=== PATIENT | male | born 1995 | race Hispanic/Latino ===

== ENCOUNTER 2021-05-14 23:37 | Emergency (ER) | payer BC, OTHER ==
[2021-05-15 00:50] LABS: Absolute Lymphocytes (CBC) 2.9 K/uL (0.7-4.9); Basophils % 0.7 % (0-1.3); Lymphocytes % 26.2 % (15.3-44.8); MPV 7.9 fL (7.6-11.3); RBC Red Blood Cell Count 4.66 M/uL (4.33-5.43)
[2021-05-15 01:05] LABS: ALT/SGPT 159 U/L (12-78); AST/SGOT 74 U/L (15-37); Albumin 3.5 g/dL (3.4-5.0); Alkaline Phosphatase 110 U/L (45-117); BUN Blood Urea Nitrogen 11 mg/dL (7-18); Bicarbonate 29 mmol/L (21-32); Bilirubin Direct 0.2 mg/dL (0-0.2); Bilirubin Total 0.6 mg/dL (0.2-1.0); Glucose Level 117 mg/dL (74-106); NT PRO-BNP 11 pg/mL (<125); Potassium 3.3 mmol/L (3.5-5.1); Sodium Level 142 mmol/L (136-145); Troponin (Emerg Dept Use Only) < 0.02 ng/mL (0.0-0.045)
[2021-05-15] MEDS ORDERED: KETOROLAC 30 MG/ML INJ ONE (01:44)
[2021-05-15] MEDS ORDERED: NA CHLORIDE 0.9% 1,000 ML ONE (01:44)
[2021-05-15] MEDS ORDERED: POTASSIUM 25 MEQ EFFERV TAB ONE (03:08)
[2021-05-15 03:17] LABS: Urine Blood Negative (Negative); Urine Glucose Negative (Negative); Urine Protein Negative (Negative); Urine Specific Gravity >=1.030 (1.005-1.030); Urine pH 6.5 (5.0-7.0)
--- NOTE | 2021-05-15 03:24 | ER ---
Nurse's Notes [facility] Name: Meño Rae Age: 25 yrs Sex: Male : 1995 Arrival Date: 05/14/2021 Time: 23:38 Bed 9 Private MD: Diagnosis: Chest pain, unspecified Presentation: 05/15 00:30 Chief complaint: Patient states: he started having chest pain and shortness of breath bb tonight while watching TV. Coronavirus screen: At this time, the client does not indicate any symptoms associated with coronavirus-19. Ebola Screen: No symptoms or risks identified at this time. Initial Sepsis Screen: Does the patient meet any 2 criteria? No. Patient's initial sepsis screen is negative. Does the patient have a suspected source of infection? No. Patient's initial sepsis screen is negative. Risk Assessment: Do you want to hurt yourself or someone else? Patient reports no desire to harm self or others. Onset of symptoms was May 14, 2021. 00:30 Method Of Arrival: Ambulatory bb 00:30 Acuity: DANIEL 3 bb Triage Assessment: 00:30 General: Appears in no apparent distress. Behavior is calm, cooperative. Pain: bb Complains of pain in chest Pain currently is 4 out of 10 on a pain scale. Neuro: Level of Consciousness is awake, alert, obeys commands, Oriented to person, place, time, situation. Cardiovascular: Capillary refill < 3 seconds Patient's skin is warm and dry. Respiratory: Respiratory effort is even, unlabored, Respiratory pattern is regular. GI: No signs and/or symptoms were reported involving the gastrointestinal system. Derm: Skin is dry, Skin is normal, Skin temperature is warm. Musculoskeletal: Circulation, motion, and sensation intact. Historical: - Allergies: 00:30 No Known Allergies; bb - Home Meds: 00:30 None [Active]; bb - PMHx: 00:30 None; bb - Immunization history:: Adult Immunizations up to date, Client reports having NOT received the Covid vaccine. - Social history:: Smoking status: Patient denies any tobacco usage or history of. Screenin:51 Abuse screen: Denies threats or abuse. Nutritional screening: No deficits noted. bb Tuberculosis screening: No symptoms or risk factors identified. Fall Risk None identified. Assessment: 00:51 Reassessment: No changes from previously documented assessment. Patient is alert, bb oriented x 3, equal unlabored respirations, skin warm/dry/pink. see triage assessment. 00:52 Pain: Pain does not radiate. Pain began approx 1900 last night. bb 02:56 Reassessment: Patient is alert, oriented x 3, equal unlabored respirations, skin bb warm/dry/pink. Patient states feeling better. Patient states symptoms have improved. 04:32 Reassessment: Patient is alert, oriented x 3, equal unlabored respirations, skin bb warm/dry/pink. pt verbalized understanding of and agrees to plan of care discharge instructions given pt ambulated with steady gait to exit. Vital Signs: 05/14 23:50 BP 130 / 69; Pulse 74; Resp 18; Temp 99.2(O); Pulse Ox 99% ; Weight 115.67 kg (R); mw2 Height 5 ft. 5 in. (165.10 cm); Pain 8/10; 05/15 02:30 BP 111 / 55; Pulse 81; Resp 16 S; Pulse Ox 100% on R/A; Pain 2/10; bb 04:32 BP 112 / 74; Pulse 64; Resp 16 S; Pulse Ox 99% on R/A; bb 05/14 23:50 Body Mass Index 42.43 (115.67 kg, 165.10 cm) mw2 ED Course: 05/14 23:38 Patient arrived in ED. wm 05/15 00:25 Missed attempt(s): 20 gauge in left antecubital area. Bleeding controlled, band aid mw2 applied, catheter tip intact. 00:30 Triage completed. bb 00:30 Initial lab(s) drawn, by me, sent to lab. Inserted saline lock: 20 gauge in right hand, bb using aseptic technique. Blood collected. Patient maintains SpO2 saturation greater than 95% on room air. 00:30 Arm band placed on Patient placed in an internal wait recliner. bb 00:49 Naren Macedo PA is PHCP. cp 00:49 Marcelino Truong MD is Attending Physician. cp 00:51 Patient has correct armband on for positive identification. teamcenter consultant on. Pulse bb ox on. NIBP on. 01:19 Alexia Leahy, ALISON is Primary Nurse. bb 01:35 US Extremity Venous Unilateral Ltd In Process Unspecified. EDMS 03:34 XRAY Chest (1 view) In Process Unspecified. EDMS 04:32 No provider procedures requiring assistance completed. IV discontinued, intact, bb bleeding controlled, No redness/swelling at site. Pressure dressing applied. Administered Medications: 01:21 Drug: Ketorolac 15 mg Route: IVP; Site: right hand; bb 02:30 Follow up: Response: No adverse reaction; Pain is decreased bb 01:21 Drug: NS 0.9% 1000 ml Route: IV; Rate: 1000 ml; Site: right hand; bb 02:30 Follow up: IV Status: Completed infusion; IV Intake: 1000ml bb 02:43 Drug: Potassium Effervescent Tablet 50 mEq Route: PO; bb 04:34 Follow up: Response: No adverse reaction bb Intake: 02:30 IV: 1000ml; Total: 1000ml. bb Outcome: 03:24 Discharge ordered by MD. cp 04:32 Discharged to home ambulatory. bb 04:32 Condition: stable 04:32 Discharge instructions given to patient, Instructed on discharge instructions, follow up and referral plans. medication usage, Demonstrated understanding of instructions, follow-up care, medications, Prescriptions given X 1. 04:34 Patient left the ED. bb Signatures: Dispatcher [employer] EDMS Alexia Leahy RN RN bb Naren Macedo PA PA cp [place], My[employer]ena 2 Monet Frye
--- NOTE | 2021-05-15 03:24 | EDPHYS ---
Physician Documentation [facility] Name: Meño Rae Age: 25 yrs Sex: Male : 1995 Arrival Date: 05/14/2021 Time: 23:38 Bed 9 Private MD: ED Physician Marcelino Truong HPI: 05/15 00:55 This 25 yrs old Male presents to ER via Ambulatory with complaints of Chest cp Pain, Numbness Of Arm - LEFT. 00:55 The patient or guardian reports chest pain that is located primarily in the anterior cp chest wall, left. 00:55 The pain radiates to left back. Associated signs and symptoms: Pertinent positives: cp lower extremity pain, tingling of left arm, Pertinent negatives: abdominal pain, diaphoresis, lower extremity swelling, recent travel, syncope, vomiting. The chest pain is described as sharp. Duration: The patient or guardian reports a single episode, that is still ongoing, and unchanged. Modifying factors: The symptoms are alleviated by nothing. the symptoms are aggravated by nothing. 00:55 Patient reports left side chest pain started last night while sitting and watching TV. cp Historical: - Allergies: 00:30 No Known Allergies; bb - Home Meds: 00:30 None [Active]; bb - PMHx: 00:30 None; bb - Immunization history:: Adult Immunizations up to date, Client reports having NOT received the Covid vaccine. - Social history:: Smoking status: Patient denies any tobacco usage or history of. ROS: 01:00 Constitutional: Negative for body aches, chills, fever, poor PO intake. cp 01:00 Cardiovascular: Positive for chest pain, Negative for edema, palpitations. cp 01:00 Respiratory: Negative for cough, shortness of breath, wheezing. 01:00 Abdomen/GI: Negative for abdominal pain, nausea, vomiting, and diarrhea. 01:00 Back: Negative for pain at rest, pain with movement, radiated pain. 01:00 MS/extremity: Positive for pain, tenderness, of the left lower leg. 01:00 Neuro: Positive for tingling, of the left arm, Negative for altered mental status, headache, syncope, weakness. 01:00 All other systems are negative. cp Exam: 00:00 ECG was reviewed by the Attending Physician. cp 01:05 Constitutional: The patient appears in no acute distress, alert, awake, cp non-diaphoretic, non-toxic, well developed, well nourished, obese. 01:05 Head/Face: Normocephalic, atraumatic. cp 01:05 Eyes: Periorbital structures: appear normal, Conjunctiva: normal, no exudate, no injection, Sclera: no appreciated abnormality, Lids and lashes: appear normal, bilaterally. 01:05 ENT: External ear(s): are unremarkable, Nose: is normal, Mouth: Lips: moist, Oral mucosa: moist, Posterior pharynx: Airway: no evidence of obstruction, patent. 01:05 Neck: ROM/movement: is normal, is supple, without pain, no range of motions limitations. 01:05 Chest/axilla: Inspection: normal, Palpation: is normal, no crepitus, no tenderness. 01:05 Cardiovascular: Rate: normal, Rhythm: regular, Pulses: Pulses are 2+ in right radial artery and left radial artery. Heart sounds: murmur, not appreciated, Edema: is not appreciated. 01:05 Respiratory: the patient does not display signs of respiratory distress, Respirations: normal, no use of accessory muscles, no retractions, labored breathing, is not present, Breath sounds: are clear throughout, no decreased breath sounds, no stridor, no wheezing. 01:05 Abdomen/GI: Inspection: abdomen appears normal, Palpation: abdomen is soft and non-tender, in all quadrants. 01:05 Back: pain, is absent, ROM is normal. 01:05 Musculoskeletal/extremity: DVT Exam: pain, that is mild, of the left leg, of the left calf, tenderness, that is mild, of the left leg, of the posterior aspect left lower leg, positive Homans' sign noted on exam. 01:05 Neuro: Orientation: to person, place \T\ time. Mentation: is normal, Motor: moves all fours, strength is normal, Sensation: tingling, that is mild, of the left arm. Vital Signs: 05/14 23:50 BP 130 / 69; Pulse 74; Resp 18; Temp 99.2(O); Pulse Ox 99% ; Weight 115.67 kg (R); mw2 Height 5 ft. 5 in. (165.10 cm); Pain 8/10; 05/15 02:30 BP 111 / 55; Pulse 81; Resp 16 S; Pulse Ox 100% on R/A; Pain 2/10; bb 04:32 BP 112 / 74; Pulse 64; Resp 16 S; Pulse Ox 99% on R/A; bb 05/14 23:50 Body Mass Index 42.43 (115.67 kg, 165.10 cm) mw2 MDM: 00:53 Patient medically screened. 01:00 Differential diagnosis: acute myocardial infarction, acute pericarditis, cholecystitis, cp Cholelithiasis pericarditis, pleurisy, pneumonia, pneumothorax, pulmonary embolus. 03:22 Data reviewed: vital signs, nurses notes, lab test result(s), EKG, radiologic studies, cp plain films. Test interpretation: by ED physician or midlevel provider: ECG, chest xray negative for infiltrates. Response to treatment: the patient's symptoms have markedly improved after treatment, VSS. Patient reports pain markedly improved, and as a result, I will discharge patient. 03:23 Special discussion: Based on the patient's history, exam, and Dx evaluation, there is cp no indication for emergent intervention or inpatient Tx. It is understood by the patient/guardian that if the Sx's persist or worsen they need to return immediately for re-evaluation. 05/15 00:09 Order name: Basic Metabolic Panel; Complete Time: 01:30 mw2 05/15 01:30 Interpretation: Normal except: K 3.3; CL 109; GLUC 117. 05/15 00:09 Order name: CBC with Diff; Complete Time: 00:55 mw2 05/15 00:55 Interpretation: Normal except: WBC 11.10; HCT 39.0. 05/15 00:09 Order name: LFT's; Complete Time: 01:30 mw2 05/15 00:09 Order name: Magnesium; Complete Time: :30 mw2 05/15 00:09 Order name: NT PRO-BNP; Complete Time: :30 mw2 05/15 00:09 Order name: PT-INR; Complete Time: 02:07 mw2 05/15 00:09 Order name: Troponin (emerg Dept Use Only); Complete Time: 01:30 mw2 05/15 00:09 Order name: XRAY Chest (1 view) mw2 05/15 00:55 Order name: US Extremity Venous Unilateral Ltd cp 05/15 00:55 Order name: UDS cp 05/15 01:25 Order name: D-Dimer; Complete Time: 02:07 EDNH 05/15 02:07 Interpretation: Reviewed. cp 05/15 03:17 Order name: Urine Dipstick-Ancillary [facility] 05/14 23:51 Order name: EKG - Nurse/Tech; Complete Time: 23:51 mw2 05/14 23:51 Order name: EKG; Complete Time: 23:52 mw2 05/15 00:09 Order name: Cardiac monitoring [facility] 05/15 00:09 Order name: IV Saline Lock; Complete Time: 00:28 mw2 05/15 00:09 Order name: Labs collected and sent; Complete Time: : mw2 EC:00 Rate is 69 beats/min. Rhythm is regular. LA interval is normal. QRS interval is normal. cp QT interval is normal. T waves are Inverted in leads III, aVR. Interpreted by me. Reviewed by me. Administered Medications: 01:21 Drug: Ketorolac 15 mg Route: IVP; Site: right hand; bb 02:30 Follow up: Response: No adverse reaction; Pain is decreased bb 01:21 Drug: NS 0.9% 1000 ml Route: IV; Rate: 1000 ml; Site: right hand; bb 02:30 Follow up: IV Status: Completed infusion; IV Intake: 1000ml bb 02:43 Drug: Potassium Effervescent Tablet 50 mEq Route: PO; bb 04:34 Follow up: Response: No adverse reaction bb Disposition: 03:30 Chart complete. cp 07:17 Co-signature as Attending Physician, Marcelino Truong MD. [email or web address] Disposition Summary: 05/15/21 03:24 Discharge Ordered Location: Home cp Problem: new cp Symptoms: have improved cp Condition: Stable cp Diagnosis - Chest pain, unspecified cp Followup: cp - With: Private Physician - When: 2 - 3 days - Reason: Recheck today's complaints Discharge Instructions: - Discharge Summary Sheet cp - Nonspecific Chest Pain, Adult cp Forms: - Medication Reconciliation Form cp - Thank You Letter cp - Antibiotic Education cp - Prescription Opioid Use cp Prescriptions: - Diclofenac Sodium 75 mg Oral Tablet Sustained Release - take 1 tablet by ORAL route 2 times per day; 30 tablet; Refills: 0, Product cp Selection Permitted Signatures: Dispatcher [facility] Alexia Leahy, RN RN bb Naren Macedo PA PA cp Natacha Cole mw2 Marcelino Truong MD MD mh7 Corrections: (The following items were deleted from the chart) 01:24 00:55 D-DIMER+[id number] ordered. EDNH EDNH 18:13 03:33 Special discussion: Based on the patient's history, exam, and Dx evaluation, cp there is no indication for emergent intervention or inpatient Tx. It is understood by the patient/guardian that if the Sx's persist or worsen they need to return immediately for re-evaluation. cp
[2021-05-15 03:47] LABS: Barbiturates NEGATIVE (NEGATIVE); Benzodiazepines NEGATIVE (NEGATIVE); Cocaine NEGATIVE (NEGATIVE); METHAMPHETAM NEGATIVE (NEGATIVE); Methadone NEGATIVE (NEGATIVE); Opiates NEGATIVE (NEGATIVE); Phencyclidine NEGATIVE (NEGATIVE); THC Cannibis NEGATIVE (NEGATIVE)
[2021-05-15 04:41] VITALS: TEMP 99.2
[2021-05-15 04:44] VITALS: BP 112/74; O2SAT 99
[2021-05-15] MEDS ORDERED: PANTOPRAZOLE 40 MG INJ ONE (05:23)
--- NOTE | 2021-05-15 07:16 | RAD REPORT ---
EXAM DESCRIPTION: RAD - Chest Single View - 05/15/2021 3:35 am CLINICAL HISTORY: CHEST PAIN COMPARISON: No comparisons FINDINGS: Underpenetration limits evaluation of the peripheral aspect of the left lung but no defini te process identified The heart size is within normal limits.No acute osseous abnormality. No signifi cant pleural effusions or pneumothorax. IMPRESSION: No acute cardiopulmonary disease.
--- NOTE | 2021-05-15 07:17 | RAD REPORT ---
EXAM DESCRIPTION: US - Extremity Venous Uni Ltd - 05/15/2021 1:35 am CLINICAL HISTORY: Left leg pain COMPARISON: None. TECHNIQUE: Real-time sonographic evaluation of the left lower extremity deep venous system was perfo rmed. FINDINGS: Normal compressibility, flow augmentation, phasic flow and spontaneous flow is identified in the left lower extremity deep venous system. No intraluminal filling defects seen. IMPRESSION: No DVT in the left lower extremity.
== END 2021-05-15 04:34 | disposition home or self-care (01) ==
LOC: ER 23:37
DX: R07.89 Other chest pain (principal)
CPT/HCPCS: 93005 ×2; 85025; 80048; 36415; 83735; 85610; 85379; 80076; 81003; 84484; 83880; 80307; 71045; 93971; C9113; J7030; 96361; 96374; 99285

== ENCOUNTER 2023-03-19 13:08 | Emergency (ER) | payer BC ==
--- OUTSIDE RECORDS SUMMARY | 2023-03-19 13:12 | XMS REPORT | Continuity of Care Document ---
:1995 Author Organization [facility] t Address [address] [place] [address] [place] [id number] Care Team Providers Name Role Phone Dulce Jameson Attending Clinician Unavailable Jesse Neal Attending Clinician Problems Condition Condition Condition Status Onset Resolution Last Treating Co mments Source Name Details Category Date Date Treatment Clinician Date RT HAND RT HAND Diagnosis Active 2018-07-11 Memoria Active 06-15 07:40:00 l 06/15/2018 08:00: Twin noyola [address] HAND THRU HAND THRU Diagnosis Active 2018-06-15 Memoria GLASS GLASS 06-15 12:01:00 l WINDOW/MAXIMO WINDOW/MAXIMO 00:00: Roberto haro RNIQUET RNIQUET 00 Active 06/15/2018 [facility] FOREARM FOREARM Diagnosis Active 2018-06-16 Memoria LAC,S/P LAC,S/P 06-15 08:59:00 l PUT ARM PUT ARM 00:00: Francisco THRU THRU 00 WINDOW WINDOW Active 06/15/2018 [facility] Laceration Problem 2019-02-26 M emoria of flexor Laceration 11:37:16 l muscle, of flexor Twin n fascia and muscle, tendon of fascia and right ring tendon of finger at right ring forearm finger at level, forearm subsequent level, encounter subsequent encounter 02/26/2019 [facility] Unspecifie Unspecifi Problem 2019-02-26 Memoria d injury ed injury 11:37:16 l of flexor of flexor Herm mary muscle, muscle, fascia and fascia and tendon of tendon of left left little little finger at finger at forearm forearm level, level, subsequent subsequent encounter encounter 02/26/2019 [facility] Pain in Pain in Problem 2019-02-26 Me moria joints of joints of 11:37:16 l right hand right hand He rmann 9 [facility] Localized Localized Problem 2019-02-26 Memoria swelling, swelling, 11:37:16 l mass and mass and Twin n lump, lump, right right upper limb upper limb 02/26/2019 [facility] Other Other Problem 2019-02-26 Memor ia disturbanc disturbanc 11:37:16 l es of skin es of skin He rmann sensation sensation 02/26/2019 [facility] Stiffness Stiffness Problem 2019-02-26 Memoria of right of right 11:37:16 l hand, not hand, not Herm mary elsewhere elsewhere classified classified 9 [facility] Injury of Injury of Problem 2019-01-03 Memoria median median 13:18:05 l nerve at nerve at Twin n forearm forearm level, level, right arm, right arm, initial initial encounter encounter 01/03/2019 [facility] Injury of Injury of Problem 2019-01-03 Memoria ulnar ulnar 13:18:05 l nerve at nerve at Twin n forearm forearm level, level, right arm, right arm, initial initial encounter encounter 01/03/2019 [facility] Laceration Laceratio Problem 2019-01-03 Memoria of radial n of 13:18:05 l artery at radial Francisco forearm artery at level, forearm right arm, level, initial right arm, encounter initial encounter 01/03/2019 [facility] Laceration Laceratio Problem 2019-01-03 Memoria of ulnar n of ulnar 13:18:05 l artery at artery at Herm mary forearm forearm level, level, right arm, right arm, initial initial encounter encounter 01/03/2019 [facility] Contact Contact Problem 2019-01-03 Me moria with sharp with sharp 13:18:05 l glass, glass, Francisco initial initial encounter encounter 01/03/2019 [facility] Nicotine Nicotine Problem 2019-01-03 Memoria dependence dependence 13:18:05 l , , Francisco unspecifie unspecifie d, d, uncomplica uncomplica federico federico 01/03/2019 [facility] LACERATION LACERATIO Diagnosis Active 2018-06-16 Memoria WITHOUT N WITHOUT 08:59:00 l FOREIGN FOREIGN [place] BODY OF BODY OF UNSP UNSP Active [facility] Lesion of Lesion Problem 2019-02-26 Memoria ulnar of ulnar 11:37:16 l nerve, nerve, [place] right right upper limb upper limb 02/26/2019 [facility] History of Past Illness Condition Condition Condition Status Onset Resolution Last Treating Co mments Source Name Details Category Date Date Treatment Clinician Date Other Other Problem 2017-092019-02-26 2019-02-26 M emoria lesions of lesions of -16 11:37:16 11:37:16 l median median 06:39: [place] nerve, nerve, 07 right right upper limb upper limb 8 02/26/2019 [facility] Laceration Problem 2017-092019-01-03 2019-01-03 Memoria of other Laceration 10-29 13:18:05 13:18:05 l flexor of other 05:33: Francisco muscle, flexor 03 fascia and muscle, tendon at fascia and forearm tendon at level, forearm right arm, level, initial right arm, encounter initial encounter 08/29/2018 9 [facility] Allergies, Adverse Reactions, Alerts Allergy Allergy Status Severity Reaction(s) Onset Inactive Treating Comm ents Source Name Type Date Date Clinician No Known No Known Active Memori a Medicati Medicati l on on Francisco Talley Allerggilbert s s Social History Smoking Status Start Date Stop Date Source Social History [facility] Medications Ordered Filled Start Stop Current Ordering Indication Dosage Frequency Signature Comments Components Source Medication Medication Date Date Medication? Clinician (SIG) Name Name Sulfamethox No 1 tab, PO, Memoria azole 800 -17 Q12H, X 5 l MG / 11:43: day, # 10 Francisco Trimethopri 00 tab, 0 m 160 MG Refill(s) Oral Tablet [Bactrim] tramadol No 100 mg = 2 Mem oria hydrochlori 9-17 tab, PO, l de 50 MG 11:43: Q6H, PRN Alexandria nn Oral Tablet 00 Pain Score 1-5, X 7 day, # 60 tab, 0 Refill(s) Aspirin 325 Yes 325 mg = 1 Memoria MG Oral 9-17 tab, PO, l Tablet 11:43: BID, # 84 Twin n 00 tab, 0 Refill(s) normal 2018-0 No 500 mL, Memoria saline 0.9% 06-16 Rate: 500 l IV 500 mL 02:01: ml/hr, Twin n 00 Infuse over: 1 hr, Route: IV, Dosing Weight 100 kg, Total Volume: 500, Start date: 06/15/18 21:01:00 CDT, Duration: 1 doses or times, Stop date: 06/15/18 22:00:00 CDT, 2.17, m2 normal No 1,000 mL, Memori a saline 0.9% 06-16 Rate: 100 l IV 1,000 mL 02:01: ml/hr, Herm mary 00 Infuse over: 10 hr, Route: IV, Dosing Weight 100 kg, Total Volume: 1,000, Start date: 06/15/18 21:01:00 CDT, Duration: 30 day, Stop date: 07/15/18 21:00:00 CDT, 2.17, m2 Ancef No Notes: Memoria 06-15 (Same as l 21:00: Ancef) Tylenol No Notes: Max Salvador orlando 06-15 acetaminop l 17:00: hen 4000 [place] 00 mg/day (4 gm/day). (Same as: Tylenol Extra Strength) Tramadol No Notes: Not Mem oria 06-15 to exceed l 17:00: 400mg/day. (Same As: Ultram) ondansetron No Route: IV, Memoria (ANES) 06-15 Drug form: l 16:59: INJ, ONCE, Stop date: 06/15/18 11:59:00 CDT ketOROLAC No IV, ONCE Salvador orlando (ANES) 06-15 l 16:59: glycopyrrol No Route: IV, Memoria ate (ANES) 06-15 Drug form: l 16:59: INJ, ONCE, Stop date: 06/15/18 11:59:00 CDT neostigmine No Route: IV, Memoria (ANES) 06-15 Drug form: l 16:59: INJ, ONCE, Stop date: 06/15/18 11:59:00 CDT Aspirin 325 No Notes: Salvador orlando MG Oral 06-15 Take with l Tablet 16:46: food. Oxycodone No Notes: Memori a Hydrochlori 06-15 (Same as: l de 5 MG 16:46: Roxicodone Herm mary Oral Tablet ) Dilaudid No Notes: Memoria 06-15 Same as l 16:46: Dilaudid Benadryl No Notes: Memoria 06-15 (Same as: l 16:46: Benadryl) Hydromorpho No Notes: Salvador orlando ne 06-15 Same as l 16:32: Dilaudid dexamethaso No Route: IV, Memoria ne (ANES) 06-15 Drug form: l 15:30: INJ, ONCE, Stop date: 06/15/18 10:30:00 CDT midazolam No Route: IV, Me moria (ANES) 06-15 Drug form: l 15:15: SOLN, ONCE, Stop date: 06/15/18 10:15:00 CDT propofol 0 No Route: IV, Mem oria (ANES) 06-15 Drug form: l 15:15: INJ, ONCE, Stop date: 06/15/18 10:15:00 CDT famotidine No Route: IV, M emoria (ANES) 06-15 Drug form: l 15:15: INJ, ONCE, Stop date: 06/15/18 10:15:00 CDT fentaNYL No Route: IV, Mem oria (ANES) 06-15 Drug form: l 15:15: INJ, ONCE, Stop date: 06/15/18 10:15:00 CDT rocuronium No Route: IV, M emoria (ANES) 06-15 Drug form: l 15:15: INJ, ONCE, Stop date: 06/15/18 10:15:00 CDT lidocaine 0 No Route: IV, Me moria (ANES) 06-15 Drug form: l 15:15: INJ, ONCE, Stop date: 06/15/18 10:15:00 CDT phenylephri No Route: IV, Memoria ne (ANES) 06-15 Drug form: l 15:05: INJ, ONCE, Stop date: 06/15/18 10:05:00 CDT ceFAZolin No Route: IV, Me moria (ANES) 06-15 Drug form: l 15:00: INJ, ONCE, [place] 00 Stop date: 06/15/18 10:00:00 CDT acetaminoph No Route: IV, Memoria en (ANES) 06-15 Drug form: l 10 mg 14:55: INJ, Start Twin n date: 06/15/18 9:55:00 CDT, Stop date: 06/15/18 10:55:00 CDT Ondansetron No Notes: Salvador orlando 06-15 (Same as: l 14:48: Zofran) MEDICATION WASTE Product Size: 4 mg Product Wasted: ___ mg Flumazenil No Notes: Memor ia 06-15 (Same as: l 14:48: Romazicon) Naloxone No Notes: Memoria 06-15 Same as l 14:48: Narcan Morphine No 4 mg, Memoria 06-15 Route: l 14:48: IVP, Q5Min, Dosing Weight 100, kg, PRN Pain Score 6-10, Start date: 06/15/18 9:48:00 CDT, Duration: 5 doses or times, Stop date: Limited # of times Oxycodone No Notes: Memori a 06-15 (Same as: l 14:48: Roxicodone ) Lactated No Route: IV, Mem oria Ringers 06-15 Total l Injection 14:16: Volume: Alexandria nn IV (ANE) 1,000, 1000 mL Start date: 06/15/18 9:16:00 CDT, Stop date: 06/15/18 10:16:00 CDT Dilaudid No 1 mg, Memoria 06-15 Route: l 09:52: IVP, ONCE, Dosing Weight 100, kg, Priority: STAT, Start date: 06/15/18 4:52:00 CDT, Stop date: 06/15/18 4:52:00 CDT Ondansetron 2018-0 No 4 mg, Memor ia 06-15 Route: l 08:57: IVP, Drug Francisco 00 form: INJ, ONCE, Dosing Weight 100, kg, Priority: STAT, Start date: 06/15/18 3:57:00 CDT, Stop date: 06/15/18 3:57:00 CDT Morphine 2018-0 No 4 mg, Memoria 06-15 Route: l 08:57: IVP, ONCE, Francisco 00 Dosing Weight 100, kg, Priority: STAT, Start date: 06/15/18 3:57:00 CDT, Stop date: 06/15/18 3:57:00 CDT Ancef 2017-0 No 2 gm, Memoria 06-15 Route: l 08:22: IVPB, Francisco 00 ONCE, Dosing Weight 100, kg, Priority: STAT, Start date: 06/15/18 3:22:00 CDT, Stop date: 06/15/18 3:22:00 CDT, ABX Indication : Open Wound Prophylaxi s Saline 2017-0 No Notes: Memoria Flush 0.9% 06-15 (Same as: l 07:55: BD [place] Posiflush) Vital Signs Vital Name Observation Time Observation Value Comments Source Systolic (mm Hg) 2018-06-16 20:59:00 Salvador rial [place] Diastolic (mm Hg) 2018-06-16 20:59:00 Mem orial [place] Respitory Rate 2018-06-16 20:59:00 Memori al [place] Temperature Oral (F) 2018-06-16 20:59:00 98.1 F [facility] [place] Heart Rate 2018-06-16 20:59:00 [facility] [place] Systolic (mm Hg) 2018-06-16 12:45:00 Salvador rial Francisco Diastolic (mm Hg) 2018-06-16 12:45:00 Mem orial Francisco Respitory Rate 2018-06-16 12:45:00 Memori al [place] Temperature Oral (F) 2018-06-16 12:45:00 98.2 F [facility] [place] Heart Rate 2018-06-16 12:45:00 [facility] [place] Respitory Rate 2018-06-16 09:06:00 Memlizette davidson [place] Heart Rate 2018-06-16 09:06:00 Memorial Rfancisco Systolic (mm Hg) 2018-06-16 09:06:00 Salvador koby [place] Diastolic (mm Hg) 2018-06-16 09:06:00 Mem orial [place] Temperature Oral (F) 2018-06-16 09:06:00 99.2 F [facility] [place] Height 2018-06-15 20:14:00 165 cm [facility] [place] Weight 2018-06-15 20:14:00 [facility] [place] BMI Calculated 2018-06-15 20:14:00 Memori al [place] Weight 2018-06-15 07:53:00 [facility] [place] BMI Calculated 2018-06-15 07:53:00 Memori al [place] Height 2018-06-15 07:53:00 165.1 cm [facility] [place] Procedures This patient has no known procedures. Encounters Start End Encounter Admission Attending Care Care Encounter Source Date/Time Date/Time Type Type Clinicians Facility Department ID 2022-12-18 [facility] [id number] Common 08:40:[id number] [facility] 2022-11-[address] [facility] [id number] Common 08:20:[id number] [facility] 2018-07-10 2018-08-09 OP Therapy nullFlavo [facility] [id number] Memoria 21:13:00 05:59:00 Patients r 00 l [place] 2018-07-10 2018-08-08 Outpatient Val [id number] 16:13:00 23:59:00 Jesse Hood [id number] 2018-06-15 2018-06-16 Observatio nullFlavo [facility] [id number] Memoria 07:49:00 16:00:00 n r [place] 00 l [facility] [place] 2018-06-15 2018-06-16 Outpatient Val [facility] [id number] 02:49:00 11:00:00 Jesse Hood 00 Results Test Description Test Time Test Comments Results Result Comments Source CHEM PANEL 2018-06-15 23:23:00 Test Item Value Reference Range Interpretation Comme nts Lactic Acid Lvl (test code = Lactic Acid Lvl) 1.6 0.5-2.2 [facility] [id number] 12:34:00 Test Item Value Reference Range Interpretation Comments UDS Note (test code = See Note (06/15/18 7:34 UDS Note) AM) [facility] [id number] 12:34:00 Test Item Value Reference Range Interpretation Comments U Opiate Scr (test Positive *ABN*(06/15/18 code = U Opiate Scr) 7:34 AM) [facility] [id number] 12:34:00 Test Item Value Reference Range Interpretation Comments U Cannab Scr (test Negative *NA*(06/15/18 code = U Cannab Scr) 7:34 AM) [facility] [id number] 12:34:00 Test Item Value Reference Range Interpretation Comments U Phencyclidine Scr (test Negative code = U Phencyclidine *NA*(06/15/18 7:34 Scr) AM) [facility] [id number] 12:34:00 Test Item Value Reference Range Interpretation Comments U Nikky Scr (test code Negative *NA*(06/15/18 = U Nikky Scr) 7:34 AM) [facility] [id number] 12:34:00 Test Item Value Reference Range Interpretation Comments U Cocaine Scr (test Negative *NA*(06/15/18 code = U Cocaine Scr) 7:34 AM) [facility] [id number] 12:34:00 Test Item Value Reference Range Interpretation Comments U Benzodiaz Scr (test Negative *NA*(06/15/18 code = U Benzodiaz Scr) 7:34 AM) [facility] [id number] 12:34:00 Test Item Value Reference Range Interpretation Comments U Amph Scr (test code Negative *NA*(06/15/18 = U Amph Scr) 7:34 AM) [facility] [id number] 12:34:00 Test Item Value Reference Range Interpretation Comments UA Protein (test code = UA Negative mg/dL Protein) [facility] [id number] 12:34:00 Test Item Value Reference Range Interpretation Comments UA Glucose (test code = UA Negative mg/dL Glucose) [facility] [id number] 12:34:00 Test Item Value Reference Range Interpretation Comments UA Ketones (test code = UA Ketones) 20 mg/dL [facility] [id number] 12:34:00 Test Item Value Reference Range Interpretation Comments UA Bili (test code = Negative *NA*(06/15/18 UA Bili) 7:34 AM) [facility] [id number] 12:34:00 Test Item Value Reference Range Interpretation Comments UA pH (test code = UA pH) 5.0 1 5.0-8.0 [facility] [id number] 12:34:00 Test Item Value Reference Range Interpretation Comments UA Urobilinogen (test code = UA <=1.0 mg/dL 0.1-1.0 Urobilinogen) [facility] [id number] 12:34:00 Test Item Value Reference Range Interpretation Comments UA Nitrite (test code Negative (06/15/18 7:34 = UA Nitrite) AM) [facility] [id number] 12:34:00 Test Item Value Reference Range Interpretation Comments UA Leuk Est (test Negative (06/15/18 7:34 code = UA Leuk Est) AM) [facility] [id number] 12:34:00 Test Item Value Reference Range Interpretation Comments UA WBC (test code = no gt See_Comment [Automa federico message] The UA WBC) system which ge nerated this result transmit federico reference range : <=5. The reference range was not used to interpr et this result as sagar l/abnormal. [facility] [id number] 12:34:00 Test Item Value Reference Range Interpretation Comments UA Blood (test code = Negative (06/15/18 7:34 UA Blood) AM) [facility] [id number] 12:34:00 Test Item Value Reference Range Interpretation Comments UA Sq Epi (test code = UA Sq Epi) None Seen [facility] [id number] 12:34:00 Test Item Value Reference Range Interpretation Comments UA Color (test code = Yellow *NA*(06/15/18 UA Color) 7:34 AM) [facility] AND [id number] 12:34:00 Test Item Value Reference Range Interpretation Comments UA Mucus (test code = UA Mucus) Few /LPF [facility] AND [id number] 12:34:00 Test Item Value Reference Range Interpretation Comments UA Spec Grav (test code = UA Spec 1.016 1 Grav) [facility] [id number] 12:34:00 Test Item Value Reference Range Interpretation Comments UA Turbidity (test code = Clear (06/15/18 7:34 UA Turbidity) AM) [facility]CHE[facility] [id number] 10:52:00 Test Item Value Reference Range Interpretation Comments Lactic Acid Lvl (test code = Lactic 1.8 0.5-2.2 Acid Lvl) [id number] 07:59:00 Test Item Value Reference Range Interpretation Comments Chloride Lvl (test code = Chloride Lvl) 108 95-109 [facility] [id number] 07:59:00 Test Item Value Reference Range Interpretation Comments eGFR (test code = eGFR) 63 [facility] [id number] 07:59:00 Test Item Value Reference Range Interpretation Comments Neutrophils # (test code = Neutrophils 10.6 1.5-8.1 #) [facility] [id number] 07:59:00 Test Item Value Reference Range Interpretation Comments Lymphocytes # (test code = Lymphocytes 3.5 1.0-5.5 #) [facility] [id number] 07:59:00 Test Item Value Reference Range Interpretation Comments Monocytes # (test code 0.6 See_Comment [Aut omated message] The = Monocytes #) system which generated this result tra nsmitted reference range : <=0.8. The reference r huntre was not used to int erpret this result as normal/abnormal . [facility] [id number] 07:59:00 Test Item Value Reference Range Interpretation Comments Segs (test code = Segs) 71.8 45.0-75.0 [facility] [id number] 07:59:00 Test Item Value Reference Range Interpretation Comments Lymphocytes (test code = Lymphocytes) 23.6 20.0-40.0 [facility] [id number] 07:59:00 Test Item Value Reference Range Interpretation Comments Monocytes (test code = Monocytes) 4.1 2.0-12.0 [facility] [id number] 07:59:00 Test Item Value Reference Range Interpretation Comments Eosinophils (test code = 0.3 See_Comment [A utomated message] The Eosinophils) system which ge nerated this result tra nsmitted reference range : <=4.0. The reference r hunter was not used to int erpret this result as normal/abnormal . [facility] [id number] 07:59:00 Test Item Value Reference Range Interpretation Comments Basophils (test code = 0.2 See_Comment [Aut omated message] The Basophils) system which ge nerated this result tra nsmitted reference range : <=1.0. The reference r hunter was not used to int erpret this result as normal/abnormal . [facility] [id number] 07:59:00 Test Item Value Reference Range Interpretation Comments RDW (test code = RDW) 13.0 11.5-14.5 [facility] [id number] 07:59:00 Test Item Value Reference Range Interpretation Comments Platelet (test code = Platelet) 233 133-450 [facility] [id number] 07:59:00 Test Item Value Reference Range Interpretation Comments MPV (test code = MPV) 8.1 7.4-10.4 [facility] [id number] 07:59:00 Test Item Value Reference Range Interpretation Comments Hgb (test code = Hgb) 13.0 14.0-18.0 [facility] [id number] 07:59:00 Test Item Value Reference Range Interpretation Comments Hct (test code = Hct) 37.4 42.0-54.0 [facility] [id number] 07:59:00 Test Item Value Reference Range Interpretation Comments MCV (test code = MCV) 84.0 80.0-94.0 [facility] [id number] 07:59:00 Test Item Value Reference Range Interpretation Comments MCH (test code = MCH) 29.2 pg 27.0-31.0 [facility] [id number] 07:59:00 Test Item Value Reference Range Interpretation Comments MCHC (test code = MCHC) 34.7 32.0-36.0 [facility] [id number] 07:59:00 Test Item Value Reference Range Interpretation Comments WBC (test code = WBC) 14.8 3.7-10.4 [facility] [id number] 07:59:00 Test Item Value Reference Range Interpretation Comments RBC (test code = RBC) 4.45 4.70-6.10 [facility] [id number] 07:59:00 Test Item Value Reference Range Interpretation Comments Estimated % Lysis Rapid 3.6 See_Comment [Au tomated message] The (test code = Estimated syste m which generated % Lysis Rapid) this result t ransmitted reference range : <=7.5. The reference r hunter was not used to int erpret this result as normal/abnormal . [facility] [id number] 07:59:00 Test Item Value Reference Range Interpretation Comments Max Amplitude Rapid (test code = Max 63 mm 52-71 Amplitude Rapid) [facility] [id number] 07:59:00 Test Item Value Reference Range Interpretation Comments G-value Rapid (test code = G-value 8.5 5.0-11.6 Rapid) [facility] [id number] 07:59:00 Test Item Value Reference Range Interpretation Comments K-time Rapid (test code = K-time 0.9 min 0.6-2.3 Rapid) [facility] [id number] 07:59:00 Test Item Value Reference Range Interpretation Comments Angle Rapid (test code = Angle 77 degrees 64-80 Rapid) [facility] [id number] 07:59:00 Test Item Value Reference Range Interpretation Comments R-time Rapid (test code = R-time 0.5 min 0.4-0.7 Rapid) [facility] [id number] 07:59:00 Test Item Value Reference Range Interpretation Comments ACT (TEG) Rapid (test code = ACT (TEG) 97 s 86-118 Rapid) [facility] [id number] 07:59:00 Test Item Value Reference Range Interpretation Comments Split Point Rapid (test code = Split 0.3 min Point Rapid) [facility] [id number] 07:59:00 Test Item Value Reference Range Interpretation Comments Etoh (%) (test code = Etoh (%)) 0.216 [facility] [id number] 07:59:00 Test Item Value Reference Range Interpretation Comments Ethanol Lvl (test code = Ethanol Lvl) 216 [facility] [id number] 07:59:00 Test Item Value Reference Range Interpretation Comments ABO/Rh (test code = ABO/Rh) O POS [facility] [id number] 07:59:00 Test Item Value Reference Range Interpretation Comments Antibody Scrn (test Negative (06/15/18 2:59 code = Antibody Scrn) AM) [facility] [id number] 07:59:00 Test Item Value Reference Range Interpretation Comments Lactic Acid Lvl (test code = Lactic 2.2 0.5-2.2 Acid Lvl) [facility] [id number] 07:59:00 Test Item Value Reference Range Interpretation Comments AGAP (test code = AGAP) 15.6 10.0-20.0 [facility] C[id number] 07:59:00 Test Item Value Reference Range Interpretation Comments Creatinine Lvl (test code = Creatinine 0.88 0.50-1.40 Lvl) [id number] 07:59:00 Test Item Value Reference Range Interpretation Comments BUN (test code = BUN) 11 7-22 [facility] [id number] 07:59:00 Test Item Value Reference Range Interpretation Comments Potassium Lvl (test code = Potassium 3.6 3.5-5.1 Lvl) [facility] [id number] 07:59:00 Test Item Value Reference Range Interpretation Comments Sodium Lvl (test code = Sodium Lvl) 143 135-145 [facility] [id number] 07:59:00 Test Item Value Reference Range Interpretation Comments Glucose Lvl (test code = Glucose Lvl) 141 70-99 [facility] [id number] 07:59:00 Test Item Value Reference Range Interpretation Comments Calcium Lvl (test code = Calcium Lvl) 8.3 8.5-10.5 [facility] [id number] 07:59:00 Test Item Value Reference Range Interpretation Comments CO2 (test code = CO2) 23 24-32 [place] Notes Date/Time Note Provider Source 2018-06-15 03:04:00-00:00 EXAM: XR RIGHT FOREARM 1 VIEW [facility] DATE: 06/15/2018 3:04 AM CDT INDICATION: trauma - lac./glass COMPARISON: None. UT SECTION: ER TECHNIQUE: AP radiograph of the forearm FINDINGS: No acute fracture is identified. 0.3 cm hyperdensity projects over the mid -- distal radius. Soft tissue laceration over the medial forearm. IMPRESSION: 1. A 0.3 cm hyperdensity pro jects over the right radius, possibly representing foreign body within the soft tissues. Limited evaluation on single projection. 2. Laceration of the medial right mid forearm. 3. No acute fracture.
[2023-03-19 14:33] LABS: Absolute Lymphocytes (CBC) 2.7 K/uL (0.7-4.9); Hematocrit 44.3 % (39.6-49.0); Lymphocytes % 21.6 % (15.3-44.8); MCV 84.3 fL (80-100); MPV 8.1 fL (7.6-11.3); RBC Red Blood Cell Count 5.26 M/uL (4.33-5.43)
[2023-03-19 14:50] LABS: Albumin 3.9 g/dL (3.4-5.0); Potassium 4.1 mEq/L (3.5-5.1); Protein, Total 8.5 g/dL (6.4-8.2)
[2023-03-19 15:55] LABS: Specific Gravity 1.025 (1.005-1.030); Urine Bacteria <20 /HPF (<20); Urine Bilirubin NEGATIVE (Negative); Urine Blood Trace (Negative); Urine Clarity Clear (Clear); Urine Color Yellow (Yellow); Urine Glucose NEGATIVE (Negative); Urine Mucus 2+ /HPF (None Seen); Urine Protein TRACE (Negative); Urine RBC <5 /HPF (None Seen); Urine Urobilinogen Normal (Normal)
[2023-03-19] MEDS ORDERED: HYDROMORPHONE HCL 1 MG/ML INJ ONE (17:06)
--- NOTE | 2023-03-19 19:14 | RAD REPORT ---
EXAM DESCRIPTION: CT - Abdomen Pelvis W Contrast - 03/19/2023 6:54 pm CLINICAL HISTORY: Abdominal pain/right inguinal pain COMPARISON: November 2022 TECHNIQUE: Computed axial tomography of the abdomen pelvis was obtained. 100 cc Isovue-300 was admin istered intravenously. Oral contrast was not requested which limits evaluation of bowel and appendix All CT scans are performed using dose optimization technique as appropriate and may include automated exposure control or mA/KV adjustment according to patient size. FINDINGS: Fatty liver Spleen, pancreas, adrenal and kidneys appear unremarkable. There is no evidence of diverticulitis. Normal appendix. Small left inguinal hernia contains fat. A very small right inguinal hernia contains fat Small umbilical hernia IMPRESSION: Fatty liver Small left inguinal hernia Very small right inguinal hernia
--- NOTE | 2023-03-19 19:18 | EDPHYS ---
Physician Documentation [facility] Name: Meño Rae Age: 27 yrs Sex: Male : 1995 Arrival Date: 03/19/2023 Time: 13:08 Bed 9 Private MD: ED Physician Andrés Hurtado HPI: 03/19 14:05 This 27 yrs old Male presents to ER via Ambulatory with complaints of Hernia. cp 14:05 The patient presents with right inguinal pain. Patient reports history of right cp inguinal hernia. C/o increased pain today and feels like hernia has gotten larger. Called DR Fofana's office and was told to come to ED for evaluation. 14:05 Associated signs and symptoms: Pertinent negatives: abdominal pain, constipation, cp fever, testicular pain. Historical: - Allergies: 13:47 No Known Allergies; iw - Home Meds: 13:47 None [Active]; iw - PMHx: 13:47 None; iw - PSHx: 13:47 right arm; iw - Immunization history:: Adult Immunizations. - Social history:: Smoking status: unknown. ROS: 14:10 Constitutional: Negative for body aches, chills, fever, poor PO intake. cp 14:10 Respiratory: Negative for cough, shortness of breath, wheezing. cp 14:10 Abdomen/GI: Negative for abdominal pain. 14:10 : Positive for 19:18 Constitutional: Negative for fever, chills, and weight loss. kb Exam: 14:15 Constitutional: The patient appears in no acute distress, alert, awake, non-toxic, well cp developed, well nourished, obese, uncomfortable. 14:15 Head/Face: Normocephalic, atraumatic. cp 14:15 Eyes: Periorbital structures: appear normal, Conjunctiva: normal, no exudate, no injection, Sclera: no appreciated abnormality, Lids and lashes: appear normal, bilaterally. 14:15 ENT: External ear(s): are unremarkable, Nose: is normal, Mouth: Lips: moist, Oral mucosa: pink and intact, moist, Posterior pharynx: is normal, airway is patent. 14:15 Chest/axilla: Inspection: normal. 14:15 Cardiovascular: Rate: normal, Rhythm: regular. 14:15 Respiratory: the patient does not display signs of respiratory distress, Respirations: normal, no use of accessory muscles, no retractions, labored breathing, is not present, Breath sounds: are clear throughout, no decreased breath sounds, no stridor, no wheezing. 14:15 Abdomen/GI: Inspection: abdomen appears normal, Bowel sounds: active, all quadrants, Palpation: abdomen is soft and non-tender, in all quadrants, Hernia: noted in the right inguinal area, tenderness, that is moderate. 14:15 Back: pain, is absent, ROM is normal. Vital Signs: 13:46 BP 125 / 70; Pulse 70; Resp 16; Temp 98; Pulse Ox 97% on R/A; Weight 120.2 kg; Height 5 iw ft. 5 in. ; Pain 8/10; 19:23 BP 122 / 74; Pulse 74; Resp 18; Pulse Ox 100% on R/A; mb9 13:46 Body Mass Index 44.10 (120.20 kg, 165.1 cm) iw 13:46 Pain Scale: Adult iw MDM: 14:00 Patient medically screened. cp 19:17 Differential diagnosis: nonspecific abdominal pain, hernia. Data reviewed: vital signs, kb nurses notes. Counseling: I had a detailed discussion with the patient and/or guardian regarding: the historical points, exam findings, and any diagnostic results supporting the discharge/admit diagnosis, lab results, radiology results, the need for outpatient follow up, a family practitioner, a general surgeon, to return to the emergency department if symptoms worsen or persist or if there are any questions or concerns that arise at home. 03/19 14:00 Order name: CBC with Diff; Complete Time: 16:46 cp 03/19 14:00 Order name: CMP; Complete Time: 16:46 cp 03/19 14:00 Order name: Lipase; Complete Time: 16:46 cp 03/19 14:00 Order name: Urinalysis w/ reflexes; Complete Time: 16:46 cp 03/19 17:29 Order name: CT Abd/Pelvis - IV Contrast Only; Complete Time: 19:17 cp 03/19 14:00 Order name: IV Saline Lock; Complete Time: 14:15 cp 03/19 14:00 Order name: Labs collected and sent; Complete Time: 14:15 cp Administered Medications: 17:00 Drug: HYDROmorphone IVP 1 mg Route: IVP; Site: left antecubital; nj1 17:45 Follow up: Response: No adverse reaction; Pain is decreased nj1 Disposition Summary: 03/19/23 19:17 Discharge Ordered Location: Home kb Condition: Stable kb Diagnosis - Bilateral inguinal hernia, without obstruction or gangrene, not specified as kb recurrent Followup: kb - With: Emergency Department - When: As needed - Reason: Worsening of condition Followup: kb - With: Private Physician - When: 2 - 3 days - Reason: Recheck today's complaints, Continuance of care, Re-evaluation by your physician Discharge Instructions: - Discharge Summary Sheet kb - Inguinal Hernia, Adult kb Forms: - Medication Reconciliation Form kb - Thank You Letter kb - Antibiotic Education kb - Prescription Opioid Use kb - Work release form mb9 Signatures: Dispatcher [employer] Dulce Artis, ASHLY-C PYTHON ARCHITECT-Jenny Ingram, RN RN Naren Pina PA PA cp Jaco, Norma RN RN nj1
--- NOTE | 2023-03-19 19:18 | ER ---
Nurse's Notes [facility] Name: Meño Rae Age: 27 yrs Sex: Male : 1995 Arrival Date: 03/19/2023 Time: 13:08 Bed 9 Private MD: Diagnosis: Bilateral inguinal hernia, without obstruction or gangrene, not specified as recurrent Presentation: 03/19 13:46 Chief complaint: Patient states: right inguinal hernia, has popped out more, was told iw to come to ER by Dr. Fofana office. Coronavirus screen: At this time, the client does not indicate any symptoms associated with coronavirus-19. Ebola Screen: Patient negative for fever greater than or equal to 101.5 degrees Fahrenheit, and additional compatible Ebola Virus Disease symptoms Patient denies exposure to infectious person. Patient denies travel to an Ebola-affected area in the 21 days before illness onset. No symptoms or risks identified at this time. Initial Sepsis Screen: Does the patient meet any 2 criteria? No. Patient's initial sepsis screen is negative. Does the patient have a suspected source of infection? No. Patient's initial sepsis screen is negative. Risk Assessment: Do you want to hurt yourself or someone else? Patient reports no desire to harm self or others. Onset of symptoms was March 19, 2023. 13:46 Method Of Arrival: Ambulatory iw 13:46 Acuity: DANIEL 3 iw Historical: - Allergies: 13:47 No Known Allergies; iw - Home Meds: 13:47 None [Active]; iw - PMHx: 13:47 None; iw - PSHx: 13:47 right arm; iw - Immunization history:: Adult Immunizations. - Social history:: Smoking status: unknown. Screenin:23 [facility] ED Fall Risk Assessment (Adult) History of falling in the last 3 months, nj1 including since admission No falls in past 3 months (0 pts) Confusion or Disorientation No (0 pts) Intoxicated or Sedated No (0 pts) Impaired Gait No (0 pts) Mobility Assist Device Used No (0 pt) Altered Elimination No (0 pt) Score/Fall Risk Level 0 - 2 = Low Risk Oriented to surroundings, Maintained a safe environment, Hourly rounding (assess needs \T\ fall precautionary measures) done. Abuse screen: Denies threats or abuse. Denies injuries from another. Nutritional screening: No deficits noted. Tuberculosis screening: No symptoms or risk factors identified. Assessment: 17:00 General: Appears in no apparent distress. uncomfortable, Behavior is calm, cooperative, nj1 appropriate for age. Pain: Complains of pain in Groin, right Pain currently is 8 out of 10 on a pain scale. 17:00 Neuro: Level of Consciousness is awake, alert, obeys commands, Oriented to person, nj1 place, time, situation. Cardiovascular: Patient's skin is warm and dry. Respiratory: Airway is patent Respiratory effort is even, unlabored. 17:45 Reassessment: Patient appears in no apparent distress at this time. Patient and/or nj1 family updated on plan of care and expected duration. Pain level reassessed. Patient is alert, oriented x 3, equal unlabored respirations, skin warm/dry/pink. Reassessment: Patient states symptoms have improved. Pain: Complains of pain in Groin, right Pain currently is 6 out of 10 on a pain scale. Vital Signs: 13:46 BP 125 / 70; Pulse 70; Resp 16; Temp 98; Pulse Ox 97% on R/A; Weight 120.2 kg; Height 5 iw ft. 5 in. ; Pain 8/10; 19:23 BP 122 / 74; Pulse 74; Resp 18; Pulse Ox 100% on R/A; mb9 13:46 Body Mass Index 44.10 (120.20 kg, 165.1 cm) iw 13:46 Pain Scale: Adult iw ED Course: 13:09 Patient arrived in ED. rg4 13:20 Naren Macedo PA is PHCP. cp 13:20 Andrés Hurtado MD is Attending Physician. cp 13:47 Triage completed. iw 13:47 Arm band placed on. iw 16:08 Alivia Tinsley, RN is Primary Nurse. nj1 17:00 Patient has correct armband on for positive identification. Bed in low position. Call nj light in reach. Adult w/ patient. 18:56 CT Abd/Pelvis - IV Contrast Only In Process Unspecified. EDMS 19:02 PHCP role handed off by Naren Macedo PA kb 19:02 Dulce Rogel FNP-C is PHCP. kb 19:23 No provider procedures requiring assistance completed. IV discontinued, intact, mb9 bleeding controlled, No redness/swelling at site. Pressure dressing applied. Administered Medications: 17:00 Drug: HYDROmorphone IVP 1 mg Route: IVP; Site: left antecubital; nj1 17:45 Follow up: Response: No adverse reaction; Pain is decreased nj1 Outcome: 19:17 Discharge ordered by MD. warren 19:23 Discharged to home ambulatory. mb9 19:23 Condition: stable 19:23 Discharge instructions given to patient, Instructed on discharge instructions, follow up and referral plans. Demonstrated understanding of instructions, follow-up care. 19:24 Patient left the ED. mb9 Signatures: Dispatcher [employer] EDMS Dulce Rogel, ASHLY-C WELDING TEACHER-Jenny Ingram, RN RN iw Naren Macedo PA PA cp Garcia, Rubi rg4 Kelsie Morgan, RN RN mb9 Alivia Tinsley RN RN nj1 Corrections: (The following items were deleted from the chart) 13:48 13:46 Pulse 70bpm; Resp 16bpm; Pulse Ox 97% RA; Temp 98F; 120.2 kg; Height 5 ft. 5 in.; iw BMI: 44.1; Pain 8/10, Adult; iw
[2023-03-19 19:35] VITALS: TEMP 98
[2023-03-19 19:36] VITALS: BP 122/74; O2SAT 100
== END 2023-03-19 19:24 | disposition home or self-care (01) ==
LOC: ER 13:08
DX: K40.20 Bilateral inguinal hernia, without obstruction or gangrene, not specified as recurrent (principal)
CPT/HCPCS: 85025; 81001; 36415; 83690; 80053; 74177; Q9967; J1170

== ENCOUNTER 2023-03-26 14:28 | Emergency (ER) | payer BC ==
--- OUTSIDE RECORDS SUMMARY | 2023-03-26 14:34 | XMS REPORT | Continuity of Care Document ---
:1995 Author Organization [facility] t Address [address] [place] [address] [place] [id number] Care Team Providers Name Role Phone Dulce Jameson Attending Clinician Unavailable Jesse Neal Attending Clinician Problems Condition Condition Condition Status Onset Resolution Last Treating Co mments Source Name Details Category Date Date Treatment Clinician Date RT HAND RT HAND Diagnosis Active 2018-07-11 Memoria Active 06-15 07:40:00 l 06/15/2018 08:00: Twin noyola [address] HAND THRU HAND THRU Diagnosis Active 2018-06-15 Memoria GLASS GLASS 06-15 12:01:00 l WINDOW/MAXIMO WINDOW/MAXIMO 00:00: Roberto haro RNIQUET RNIQUET 00 Active 06/15/2018 [facility] FOREARM FOREARM Diagnosis Active 2018-06-16 Memoria LAC,S/P LAC,S/P 06-15 08:59:00 l PUT ARM PUT ARM 00:00: Francisco THRU THRU 00 WINDOW WINDOW Active 06/15/2018 [facility] Pain in Pain in Problem 2019-02-26 Me moria joints of joints of 11:37:16 l right hand right hand He rmann 9 [facility] Localized Localized Problem 2019-02-26 Memoria swelling, swelling, 11:37:16 l mass and mass and Twin noyola lump, lump, right right upper limb upper limb 9 [facility] Other Other Problem 2019-02-26 Salvador [place] disturbanc disturbanc 11:37:16 l es of skin es of skin He [facility] sensation sensation 02/26/2019 [facility] Stiffness Stiffness Problem 2019-02-26 Memoria of right of right 11:37:16 l hand, not hand, not Herm mary elsewhere elsewhere classified classified 02/26/2019 [facility] Injury of Injury of Problem 2019-01-03 Memoria median median 13:18:05 l nerve at nerve at Twin n forearm forearm level, level, right arm, right arm, initial initial encounter encounter 01/03/2019 [facility] Injury of Injury of Problem 2019-01-03 Memoria ulnar ulnar 13:18:05 l nerve at nerve at Twin n forearm forearm level, level, right arm, right arm, initial initial encounter encounter 01/03/2019 [facility] Laceration Laceratio Problem 2019-01-03 Memoria of radial n of 13:18:05 l artery at radial Francisco forearm artery at level, forearm right arm, level, initial right arm, encounter initial encounter 01/03/2019 [facility] Laceration Laceratio Problem 2019-01-03 Memoria of ulnar n of ulnar 13:18:05 l artery at artery at Herm mary forearm forearm level, level, right arm, right arm, initial initial encounter encounter 01/03/2019 [facility] Contact Contact Problem 2019-01-03 Me moria with sharp with sharp 13:18:05 l glass, glass, [place] initial initial encounter encounter 01/03/2019 [facility] Nicotine Nicotine Problem 2019-01-03 Memoria dependence dependence 13:18:05 l , , Francisco unspecifie unspecifie d, d, uncomplica uncomplica federico federico 01/03/2019 [facility] LACERATION LACERATIO Diagnosis Active 2018-06-16 Memoria WITHOUT N WITHOUT 08:59:00 l FOREIGN FOREIGN [place] BODY OF BODY OF UNSP UNSP Active [facility] Lesion of Lesion of Problem 2019-02-26 Memoria ulnar ulnar 11:37:16 l nerve, nerve, [place] right right upper limb upper limb 02/26/2019 [facility] Laceration Laceratio Problem 2019-02-26 Memoria of flexor n of 11:37:16 l muscle, flexor Francisco fascia and muscle, tendon of fascia and right ring tendon of finger at right ring forearm finger at level, forearm subsequent level, encounter subsequent encounter 02/26/2019 [facility] Unspecifie Unspecifi Problem 2019-02-26 Memoria d injury ed injury 11:37:16 l of flexor of flexor Herm mary muscle, muscle, fascia and fascia and tendon of tendon of left left little little finger at finger at forearm forearm level, level, subsequent subsequent encounter encounter 02/26/2019 [facility] History of Past Illness Condition Condition Condition Status Onset Resolution Last Treating Co mments Source Name Details Category Date Date Treatment Clinician Date Other Other Problem 2017-092019-02-26 2019-02-26 M emoria lesions of lesions of 10-15 11:37:16 11:37:16 l median median 06:39: Francisco nerve, nerve, 07 right right upper limb upper limb 8 02/26/2019 [facility] Laceration Problem 2017-092019-01-03 2019-01-03 Memoria of other Laceration 10-29 13:18:05 13:18:05 l flexor of other 05:33: Francisco muscle, flexor 03 fascia and muscle, tendon at fascia and forearm tendon at level, forearm right arm, level, initial right arm, encounter initial encounter 08/29/2018 9 [facility] Allergies, Adverse Reactions, Alerts Allergy Allergy Status Severity Reaction(s) Onset Inactive Treating Comm ents Source Name Type Date Date Clinician No Known No Known Active Memori a Medicati Medicati l on on Francisco Talley Allerggilbert s s Social History Smoking Status Start Date Stop Date Source Social History [facility] Medications Ordered Filled Start Stop Current Ordering [...] 325 mg = 1 Memoria MG Oral -17 tab, PO, l Tablet 11:43: BID, # 84 Twin n 00 tab, 0 Refill(s) Sulfamethox No 1 tab, PO, Memoria azole 800 9-17 Q12H, X 5 l MG / 11:43: day, # 10 [place] Trimethopri 00 tab, 0 m 160 MG [...] Twin n 00 tab, 0 Refill(s) normal No 500 mL, Memoria saline 0.9% 9-17 Rate: 500 l IV 500 mL 02:01: ml/hr, Twin n 00 Infuse over: 1 hr, Route: IV, Dosing Weight 100 kg, Total Volume: 500, Start date: 06/15/18 21:01:00 CDT, Duration: 1 doses or times, Stop date: 06/15/18 22:00:00 CDT, 2.17, m2 normal No 1,000 mL, Memori a saline 0.9% 9-17 Rate: 100 l IV 1,000 mL 02:01: ml/hr, Herm mary 00 Infuse over: 10 hr, Route: IV, Dosing Weight 100 kg, Total Volume: 1,000, Start date: 06/15/18 21:01:00 CDT, Duration: 30 day, Stop date: 07/15/18 21:00:00 CDT, 2.17, m2 normal No 500 mL, Memoria saline 0.9% 9-17 Rate: 500 l IV 500 mL 02:01: ml/hr, Tiwn n 00 Infuse over: 1 hr, Route: IV, Dosing Weight 100 kg, Total Volume: 500, Start date: 06/15/18 21:01:00 CDT, Duration: 1 doses or times, Stop date: 06/15/18 22:00:00 CDT, 2.17, m2 normal 0 No 1,000 mL, Memori a saline 0.9% 9-17 Rate: 100 l IV 1,000 mL 02:01: ml/hr, Infuse over: 10 hr, Route: IV, Dosing Weight 100 kg, Total Volume: 1,000, Start date: 06/15/18 21:01:00 CDT, Duration: 30 day, Stop date: 07/15/18 21:00:00 CDT, 2.17, m2 Ancef No Notes: Memoria 9-16 (Same as l 21:00: Ancef) Ancef No Notes: Memoria 9-16 (Same as l 21:00: Ancef) Tylenol No Notes: Max Salvador orlando 9-16 acetaminop l 17:00: hen 4000 [place] 00 mg/day (4 gm/day). (Same as: Tylenol Extra Strength) Tramadol No Notes: Not Mem oria 9-16 to exceed l 17:00: 400mg/day. (Same As: Ultram) Tylenol No Notes: Max Salvador [place] 9-16 acetaminop l 17:00: hen 4000 [place] 00 mg/day (4 gm/day). (Same as: Tylenol Extra Strength) Tramadol No Notes: Not Mem oria 9-16 to exceed l 17:00: 400mg/day. (Same As: [...] INJ, ONCE, Stop date: 06/15/18 11:59:00 CDT ondansetron No Route: IV, Memoria (ANES) 06-15 [...] l 16:46: Dilaudid Benadryl No Notes: Memoria 16 (Same as: l 16:46: Benadryl) Aspirin 325 No Notes: Salvador orlando MG Oral 06-15 Take with l Tablet 16:46: food. Oxycodone No Notes: Memori a Hydrochlori 06-15 (Same as: l de 5 MG 16:46: Roxicodone Herm mary Oral Tablet ) Dilaudid No Notes: Memoria 16 Same as l 16:46: Dilaudid Benadryl No Notes: Memoria 16 (Same as: l 16:46: Benadryl) Hydromorpho No Notes: Salvador orlando ne 06-15 Same as l 16:32: Dilaudid Hydromorpho No Notes: Salvador [place] ne 06-15 Same as l 16:32: Dilaudid dexamethaso No Route: IV, Memoria ne (ANES) 06-15 Drug form: l 15:30: INJ, ONCE, Stop date: 06/15/18 10:30:00 CDT dexamethaso 2017-0 No Route: IV, Memoria ne (ANES) 06-15 Drug form: l 15:30: INJ, ONCE, Stop date: 06/15/18 10:30:00 CDT fentaNYL 2017-0 No Route: IV, Mem oria (ANES) 06-15 Drug form: l 15:15: INJ, ONCE, Stop date: 06/15/18 10:15:00 CDT rocuronium 2017-0 No Route: IV, M emoria (ANES) 06-15 Drug form: l 15:15: INJ, ONCE, Stop date: 06/15/18 10:15:00 CDT lidocaine 2017-0 No Route: IV, Me moria (ANES) 06-15 Drug form: l 15:15: INJ, ONCE, Stop date: 06/15/18 10:15:00 CDT midazolam 2018-0 No Route: IV, Me moria (ANES) 06-15 Drug form: l 15:15: SOLN, ONCE, Stop date: 06/15/18 10:15:00 CDT propofol 2018-0 No Route: IV, Mem oria (ANES) 06-15 Drug form: l 15:15: INJ, ONCE, Stop date: 06/15/18 10:15:00 CDT famotidine 2017-0 No Route: IV, M emoria (ANES) 06-15 Drug form: l 15:15: INJ, ONCE, Stop date: 06/15/18 10:15:00 CDT fentaNYL 2018-0 No Route: IV, Mem oria (ANES) 06-15 Drug form: l 15:15: INJ, ONCE, Stop date: 06/15/18 10:15:00 CDT rocuronium 2018-0 No Route: IV, M emoria (ANES) 06-15 Drug form: l 15:15: INJ, ONCE, Stop date: 06/15/18 10:15:00 CDT lidocaine 2017-0 No Route: IV, Me moria (ANES) 06-15 Drug form: l 15:15: INJ, ONCE, Stop date: 06/15/18 10:15:00 CDT midazolam 2017-0 No Route: IV, Me moria (ANES) 06-15 Drug form: l 15:15: SOLN, Francisco 00 ONCE, Stop date: 06/15/18 10:15:00 CDT propofol 2017-0 No Route: IV, Mem oria (ANES) 06-15 Drug form: l 15:15: INJ, ONCE, Stop date: 06/15/18 10:15:00 CDT famotidine 2017-0 No Route: IV, M emoria (ANES) 06-15 Drug form: l 15:15: INJ, ONCE, Stop date: 06/15/18 10:15:00 CDT phenylephri 2017-0 No Route: IV, Memoria ne (ANES) 06-15 Drug form: l 15:05: INJ, ONCE, Stop date: 06/15/18 10:05:00 CDT phenylephri 2017-0 No Route: IV, Memoria ne (ANES) 06-15 Drug form: l 15:05: INJ, ONCE, Stop date: 06/15/18 10:05:00 CDT ceFAZolin 2017-0 No Route: IV, Me moria (ANES) 06-15 Drug form: l 15:00: INJ, ONCE, Stop date: 06/15/18 10:00:00 CDT ceFAZolin 2017-0 No Route: IV, Me moria (ANES) 06-15 Drug form: l 15:00: INJ, ONCE, Stop date: 06/15/18 10:00:00 CDT acetaminoph 2017-0 No Route: IV, Memoria en (ANES) 06-15 Drug form: l 10 mg 14:55: INJ, Start Twin date: 06/15/18 9:55:00 CDT, Stop date: 06/15/18 10:55:00 CDT acetaminoph 2017-0 No Route: IV, Memoria en (ANES) 06-15 Drug form: l 10 mg 14:55: INJ, Start Twin n date: 06/15/18 9:55:00 CDT, Stop date: 06/15/18 10:55:00 CDT Ondansetron No Notes: Salvador or[place] 16 (Same as: l 14:48: Zofran) MEDICATION WASTE Product Size: 4 mg Product Wasted: ___ mg Flumazenil No Notes: Memor ia 16 (Same as: l 14:48: Romazicon) Naloxone No Notes: Memoria 06-15 Same as l 14:48: Narcan Morphine 0 No 4 mg, Memoria 06-15 Route: l 14:48: IVP, [place] 00 Q5Min, Dosing Weight 100, kg, PRN Pain Score 6-10, Start date: 06/15/18 9:48:00 CDT, Duration: 5 doses or times, Stop date: Limited # of times Oxycodone No Notes: Memori a 06-15 (Same as: l 14:48: Roxicodone ) Ondansetron No Notes: Salvador or[place] 16 (Same as: l 14:48: Zofran) MEDICATION WASTE Product Size: 4 mg Product Wasted: ___ mg Flumazenil No Notes: Memor ia 06-15 (Same as: l 14:48: Romazicon) Naloxone No Notes: Memoria 06-15 Same as l 14:48: Narcan Morphine 0 No 4 mg, Memoria 06-15 Route: l 14:48: IVP, [place] 00 Q5Min, Dosing Weight 100, kg, PRN Pain Score 6-10, Start date: 06/15/18 9:48:00 CDT, Duration: 5 doses or times, Stop date: Limited # of times Oxycodone No Notes: Memori a 06-15 (Same as: l 14:48: Roxicodone ) Lactated No Route: IV, Mem oria Ringers 06-15 Total l Injection 14:16: Volume: [place] nn IV (ANES) 00 1,000, 1000 mL Start date: 06/15/18 9:16:00 CDT, Stop date: 06/15/18 10:16:00 CDT Lactated 2018-0 No Route: IV, Mem oria Ringers - Total l Injection 14:16: Volume: [place] nn IV (ANES) 00 1,000, 1000 mL Start date: 06/15/18 9:16:00 CDT, Stop date: 06/15/18 10:16:00 CDT Dilaudid 2018-0 No 1 mg, Memoria 06-15 Route: l 09:52: IVP, ONCE, Dosing Weight 100, kg, Priority: STAT, Start date: 06/15/18 4:52:00 CDT, Stop date: 06/15/18 4:52:00 CDT Dilaudid 2018-0 No 1 mg, Memoria 06-15 Route: l 09:52: IVP, ONCE, Dosing Weight 100, kg, Priority: STAT, Start date: 06/15/18 4:52:00 CDT, Stop date: 06/15/18 4:52:00 CDT Ondansetron 2018-0 No 4 mg, Memor ia 06-15 Route: l 08:57: IVP, Drug form: INJ, ONCE, Dosing Weight 100, kg, Priority: STAT, Start date: 06/15/18 3:57:00 CDT, Stop date: 06/15/18 3:57:00 CDT Morphine 2018-0 No 4 mg, Memoria 06-15 Route: l 08:57: IVP, ONCE, Dosing Weight 100, kg, Priority: STAT, Start date: 06/15/18 3:57:00 CDT, Stop date: 06/15/18 3:57:00 CDT Ondansetron 2018-0 No 4 mg, Memor ia 06-15 Route: l 08:57: IVP, Drug form: INJ, ONCE, Dosing Weight 100, kg, Priority: STAT, Start date: 06/15/18 3:57:00 CDT, Stop date: 06/15/18 3:57:00 CDT Morphine 2018-0 No 4 mg, Memoria 06-15 Route: l 08:57: IVP, ONCE, Dosing Weight 100, kg, Priority: STAT, Start date: 06/15/18 3:57:00 CDT, Stop date: 06/15/18 3:57:00 CDT Ancef 2017-0 No 2 gm, Memoria 06-15 Route: l 08:22: IVPB, [place] 00 ONCE, Dosing Weight 100, kg, Priority: STAT, Start date: 06/15/18 3:22:00 CDT, Stop date: 06/15/18 3:22:00 CDT, ABX Indication : Open Wound Prophylaxi s Ancef 0 No 2 gm, Memoria 06-15 Route: l 08:22: IVPB, [place] 00 ONCE, Dosing Weight 100, kg, Priority: STAT, Start date: 06/15/18 3:22:00 CDT, Stop date: 06/15/18 3:22:00 CDT, ABX Indication : Open Wound Prophylaxi s Saline No Notes: Memoria Flush 0.9% 9-16 (Same as: l 07:55: BD [place] 00 Posiflush) Saline No Notes: Memoria Flush 0.9% 9-16 (Same as: l 07:55: BD [place] 00 Posiflush) Vital Signs Vital Name Observation Time Observation Value Comments Source Systolic (mm Hg) 2018-06-16 20:59:00 Salvador rial [place] Diastolic (mm Hg) 2018-06-16 20:59:00 Mem orial [place] Respitory Rate 2018-06-16 20:59:00 Memori al [place] Temperature Oral (F) 2018-06-16 20:59:00 98.1 F [facility] [place] Heart Rate 2018-06-16 20:59:00 [facility] [place] Systolic (mm Hg) 2018-06-16 12:45:00 Salvador rial [place] Diastolic (mm Hg) 2018-06-16 12:45:00 Mem orial [place] Respitory Rate 2018-06-16 12:45:00 Memori al [place] Temperature Oral (F) 2018-06-16 12:45:00 98.2 F [facility] [place] Heart Rate 2018-06-16 12:45:00 [facility] [place] Respitory Rate 2018-06-16 09:06:00 Memori al [place] Heart Rate 2018-06-16 09:06:00 [facility] [place] Systolic (mm Hg) 2018-06-16 09:06:00 Salvador koby [place] Diastolic (mm Hg) 2018-06-16 09:06:00 Mem orial [place] Temperature Oral (F) 2018-06-16 09:06:00 99.2 F [facility] [place] Height 2018-06-15 20:14:00 165 cm [facility] [place] Weight 2018-06-15 20:14:00 [facility] [place] BMI Calculated 2018-06-15 20:14:00 Memori al [place] Weight 2018-06-15 07:53:00 [facility] [place] BMI Calculated 2018-06-15 07:53:00 Memori al [place] Height 2018-06-15 07:53:00 165.1 cm [facility] [place] Procedures This patient has no known procedures. Encounters Start End Encounter Admission Attending Care Care Encounter Source Date/Time Date/Time Type Type Clinicians Facility Department ID 2022-12-18 Outpatient Gisell [facility] [id number] Common 08:40:02 Dulce [id number] [facility] 2022-11-26 Outpatient Gisell [facility] [id number] Common 08:20:02 Dulce [id number] [facility] 2018-07-10 2018-08-09 OP Therapy nullFlavo [facility] [id number] Memoria 21:13:00 05:59:00 Patients r 00 l [place] 2018-07-10 2018-08-09 OP Therapy nullFlavo [facility] [id number] Memoria 21:13:00 05:59:00 Patients r 00 l [place] 2018-07-10 2018-08-08 Outpatient Val [id number] 16:13:00 23:59:00 Jesse Hood [id number] 2018-06-15 2018-06-16 Observatio nullFlavo [facility] [id number] Memoria 07:49:00 16:00:00 n r [place] 00 l [facility] 2018-06-15 2018-06-16 Observatio nullFlavo [facility] [id number] Memoria 07:49:00 16:00:00 n r [place] 00 l [facility] 2018-06-15 2018-06-16 Outpatient Val [facility] [id number] 02:49:00 11:00:00 Jesse Hood 00 Results Test Description Test Time Test Comments Results Result Comments Source CHEM PANEL 2018-06-15 23:23:00 Test Item Value Reference Range Interpretation Comme nts Lactic Acid Lvl (test code = Lactic Acid Lvl) 1.6 0.5-2.2 [facility] [id number] 23:23:00 Test Item Value Reference Range Interpretation Comments Lactic Acid Lvl (test code = Lactic 1.6 0.5-2.2 Acid Lvl) [facility] [id number] 12:34:00 Test Item Value Reference Range Interpretation Comments UDS Note (test code = See Note (06/15/18 7:34 UDS Note) AM) [facility] [id number] 12:34:00 Test Item Value Reference Range Interpretation Comments U Opiate Scr (test Positive *ABN*(06/15/18 code = U Opiate Scr) 7:34 AM) [facility] [id number] 12:34:00 Test Item Value Reference Range Interpretation Comments U Cannab Scr (test Negative *NA*(06/15/18 code = U Cannab Scr) 7:34 AM) [facility] [id number] 12:34:00 Test Item Value Reference Range Interpretation Comments U Phencyclidine Scr (test Negative code = U Phencyclidine *NA*(06/15/18 7:34 Scr) AM) [facility] [id number] 12:34:00 Test Item Value Reference Range Interpretation Comments U Nikky Scr (test code Negative *NA*(06/15/18 = U Nikky Scr) 7:34 AM) [facility] [id number] 12:34:00 Test Item Value Reference Range Interpretation Comments U Cocaine Scr (test Negative *NA*(06/15/18 code = U Cocaine Scr) 7:34 AM) [facility] [id number] 12:34:00 Test Item Value Reference Range Interpretation Comments U Benzodiaz Scr (test Negative *NA*(06/15/18 code = U Benzodiaz Scr) 7:34 AM) [facility] [id number] 12:34:00 Test Item Value Reference Range Interpretation Comments U Amph Scr (test code Negative *NA*(06/15/18 = U Amph Scr) 7:34 AM) [facility] AND [id number] 12:34:00 Test Item Value Reference Range Interpretation Comments UA Protein (test code = UA Negative mg/dL Protein) [facility] AND [id number] 12:34:00 Test Item Value Reference Range Interpretation Comments UA Glucose (test code = UA Negative mg/dL Glucose) [facility] AND [id number] 12:34:00 Test Item Value Reference Range Interpretation Comments UA Ketones (test code = UA Ketones) 20 mg/dL [facility] AND [id number] 12:34:00 Test Item Value Reference Range Interpretation Comments UA Bili (test code = Negative *NA*(06/15/18 UA Bili) 7:34 AM) [facility] AND [id number] 12:34:00 Test Item Value Reference Range Interpretation Comments UA pH (test code = UA pH) 5.0 1 5.0-8.0 [facility] AND [id number] 12:34:00 Test Item Value Reference Range Interpretation Comments UA Urobilinogen (test code = UA <=1.0 mg/dL 0.1-1.0 Urobilinogen) [facility] AND [id number] 12:34:00 Test Item Value Reference Range Interpretation Comments UA Nitrite (test code Negative (06/15/18 7:34 = UA Nitrite) AM) [facility] AND [id number] 12:34:00 Test Item Value Reference Range Interpretation Comments UA Leuk Est (test Negative (06/15/18 7:34 code = UA Leuk Est) AM) [facility] AND [id number] 12:34:00 Test Item Value Reference Range Interpretation Comments UA WBC (test code = no gt See_Comment [Automa federico message] The UA WBC) system which ge nerated this result transmit federico reference range : <=5. The reference range was not used to interpr et this result as sagar l/abnormal. [facility] AND [id number] 12:34:00 Test Item Value Reference Range Interpretation Comments UA Blood (test code = Negative (06/15/18 7:34 UA Blood) AM) [facility] [id number] 12:34:00 Test Item Value Reference Range Interpretation Comments UA Sq Epi (test code = UA Sq Epi) None [facility]en [facility] [id number] 12:34:00 Test Item Value Reference Range Interpretation Comments UA Color (test code = Yellow *NA*(06/15/18 UA Color) 7:34 AM) [facility] [id number] 12:34:00 Test Item Value Reference Range Interpretation Comments UA Mucus (test code = UA Mucus) Few /LPF [facility] [id number] 12:34:00 Test Item Value Reference Range Interpretation Comments UA Spec Grav (test code = UA Spec 1.016 1 Grav) [facility] [id number] 12:34:00 Test Item Value Reference Range Interpretation Comments UA Turbidity (test code = Clear (06/15/18 7:34 UA Turbidity) AM) [facility] [id number] 12:34:00 Test Item Value Reference Range Interpretation Comments UDS Note (test code = See Note (06/15/18 7:34 UDS Note) AM) [facility] [id number] 12:34:00 Test Item Value Reference Range Interpretation Comments U Opiate Scr (test Positive *ABN*(06/15/18 code = U Opiate Scr) 7:34 AM) [facility] [id number] 12:34:00 Test Item Value Reference Range Interpretation Comments U Cannab Scr (test Negative *NA*(06/15/18 code = U Cannab Scr) 7:34 AM) [facility] [id number] 12:34:00 Test Item Value Reference Range Interpretation Comments U Phencyclidine Scr (test Negative code = U Phencyclidine *NA*(06/15/18 7:34 Scr) AM) [facility] [id number] 12:34:00 Test Item Value Reference Range Interpretation Comments U Nikky Scr (test code Negative *NA*(06/15/18 = U Nikky Scr) 7:34 AM) [facility] [id number] 12:34:00 Test Item Value Reference Range Interpretation Comments U Cocaine Scr (test Negative *NA*(06/15/18 code = U Cocaine Scr) 7:34 AM) [facility] [id number] 12:34:00 Test Item Value Reference Range Interpretation Comments U Benzodiaz Scr (test Negative *NA*(06/15/18 code = U Benzodiaz Scr) 7:34 AM) [facility] [id number] 12:34:00 Test Item Value Reference Range Interpretation Comments U Amph Scr (test code Negative *NA*(06/15/18 = U Amph Scr) 7:34 AM) [facility] [id number] 12:34:00 Test Item Value Reference Range Interpretation Comments UA Protein (test code = UA Negative mg/dL Protein) [facility] [id number] 12:34:00 Test Item Value Reference Range Interpretation Comments UA Glucose (test code = UA Negative mg/dL Glucose) [facility] [id number] 12:34:00 Test Item Value Reference Range Interpretation Comments UA Ketones (test code = UA Ketones) 20 mg/dL [facility] [id number] 12:34:00 Test Item Value Reference Range Interpretation Comments UA Bili (test code = Negative *NA*(06/15/18 UA Bili) 7:34 AM) [facility] [id number] 12:34:00 Test Item Value Reference Range Interpretation Comments UA pH (test code = UA pH) 5.0 1 5.0-8.0 [facility] [id number] 12:34:00 Test Item Value Reference Range Interpretation Comments UA Urobilinogen (test code = UA <=1.0 mg/dL 0.1-1.0 Urobilinogen) [facility] [id number] 12:34:00 Test Item Value Reference Range Interpretation Comments UA Nitrite (test code Negative (06/15/18 7:34 = UA Nitrite) AM) [facility] [id number] 12:34:00 Test Item Value Reference Range Interpretation Comments UA Leuk Est (test Negative (06/15/18 7:34 code = UA Leuk Est) AM) [facility] [id number] 12:34:00 Test Item Value Reference Range Interpretation Comments UA WBC (test code = no gt See_Comment [Automa federico message] The UA WBC) system which ge nerated this result transmit federico reference range : <=5. The reference range was not used to interpr et this result as sagar l/abnormal. [facility] AND [id number] 12:34:00 Test Item Value Reference Range Interpretation Comments UA Blood (test code = Negative (06/15/18 7:34 UA Blood) AM) [facility] AND [id number] 12:34:00 Test Item Value Reference Range Interpretation Comments UA Sq Epi (test code = UA Sq Epi) None Seen [facility] AND [id number] 12:34:00 Test Item Value Reference Range Interpretation Comments UA Color (test code = Yellow *NA*(06/15/18 UA Color) 7:34 AM) [facility] AND [id number] 12:34:00 Test Item Value Reference Range Interpretation Comments UA Mucus (test code = UA Mucus) Few /LPF [facility] AND [id number] 12:34:00 Test Item Value Reference Range Interpretation Comments UA Spec Grav (test code = UA Spec 1.016 1 Grav) [facility] AND [id number] 12:34:00 Test Item Value Reference Range Interpretation Comments UA Turbidity (test code = Clear (06/15/18 7:34 UA Turbidity) AM) [facility]2018-09-16 10:52:00 Test Item Value Reference Range Interpretation Comments Lactic Acid Lvl (test code = Lactic 1.8 0.5-2.2 Acid Lvl) [facility] [id number] 10:52:00 Test Item Value Reference Range Interpretation Comments Lactic Acid Lvl (test code = Lactic 1.8 0.5-2.2 Acid Lvl) [facility]lineOqtctkhJQFVQSYWRK0563-73-55 07:59:00 Test Item Value Reference Range Interpretation Comments Monocytes # (test code 0.6 See_Comment [Aut omated message] The = Monocytes #) system which generated this result tra nsmitted reference range : <=0.8. The reference r hunter was not used to int erpret this result as normal/abnormal . [facility]lineDwvefvoWWCYNVBGBF1080-56-50 07:59:00 Test Item Value Reference Range Interpretation Comments Segs (test code = Segs) 71.8 45.0-75.0 [facility]lineLjalqhjOPFHQELKBB5166-16-05 07:59:00 Test Item Value Reference Range Interpretation Comments Lymphocytes (test code = Lymphocytes) 23.6 20.0-40.0 [facility]lineVdeajihTPZHBYNAWP2756-52-86 07:59:00 Test Item Value Reference Range Interpretation Comments Monocytes (test code = Monocytes) 4.1 2.0-12.0 [facility] ShorelineVeykoalSICZKKKQSS6503-87-18 07:59:00 Test Item Value Reference Range Interpretation Comments Eosinophils (test code = 0.3 See_Comment [A utomated message] The Eosinophils) system which ge nerated this result tra nsmitted reference range : <=4.0. The reference r hunter was not used to int erpret this result as normal/abnormal . [facility]lineOkvzablEGRGVOPQMA1883-99-23 07:59:00 Test Item Value Reference Range Interpretation Comments Basophils (test code = 0.2 See_Comment [Aut omated message] The Basophils) system which ge nerated this result tra nsmitted reference range : <=1.0. The reference r hunter was not used to int erpret this result as normal/abnormal . [facility]lineJgnwuurKCMALFRACR8665-21-15 07:59:00 Test Item Value Reference Range Interpretation Comments RDW (test code = RDW) 13.0 11.5-14.5 [facility]JpvheakGDNMOMJDNUVK9403-35-73 07:59:00 Test Item Value Reference Range Interpretation Comments Chloride Lvl (test code = Chloride Lvl) 108 95-109 [facility] CenterQsswjztSJOTMWORMQNX2152-75-81 07:59:00 Test Item Value Reference Range Interpretation Comments eGFR (test code = eGFR) 63 [facility]lineMtpqsehZEDRYUDKOV9378-87-87 07:59:00 Test Item Value Reference Range Interpretation Comments Neutrophils # (test code = Neutrophils 10.6 1.5-8.1 #) [facility]lineQzderskSGQQONZYZU7919-23-72 07:59:00 Test Item Value Reference Range Interpretation Comments Lymphocytes # (test code = Lymphocytes 3.5 1.0-5.5 #) [facility]lineXwzsljmGEZWQDZSSL6658-78-44 07:59:00 Test Item Value Reference Range Interpretation Comments Monocytes # (test code 0.6 See_Comment [Aut omated message] The = Monocytes #) system which generated this result tra nsmitted reference range : <=0.8. The reference r hunter was not used to int erpret this result as normal/abnormal . [facility]lineBolbxpgULCXEWWIAR2148-49-68 07:59:00 Test Item Value Reference Range Interpretation Comments Segs (test code = Segs) 71.8 45.0-75.0 [facility]lineAlzncmmOFGUSSUPVM6459-86-58 07:59:00 Test Item Value Reference Range Interpretation Comments Lymphocytes (test code = Lymphocytes) 23.6 20.0-40.0 [facility] ShorelineCrgemcsTQXGKLNAKL1670-97-07 07:59:00 Test Item Value Reference Range Interpretation Comments Monocytes (test code = Monocytes) 4.1 2.0-12.0 [facility] ShorelineRygjefzOPXIDYXYWK5500-17-04 07:59:00 Test Item Value Reference Range Interpretation Comments Platelet (test code = Platelet) 233 133-450 [facility] ShorelineFidyehcXWDZTDVBTM5636-05-87 07:59:00 Test Item Value Reference Range Interpretation Comments Eosinophils (test code = 0.3 See_Comment [A utomated message] The Eosinophils) system which ge nerated this result tra nsmitted reference range : <=4.0. The reference r hunter was not used to int erpret this result as normal/abnormal . [facility]lineCepcnjuYOYKHOIDBZ2881-42-57 07:59:00 Test Item Value Reference Range Interpretation Comments Basophils (test code = 0.2 See_Comment [Aut omated message] The Basophils) system which ge nerated this result tra nsmitted reference range : <=1.0. The reference r hunter was not used to int erpret this result as normal/abnormal . [facility]lineFmxxjgkOZUAZCDPVU3308-87-00 07:59:00 Test Item Value Reference Range Interpretation Comments RDW (test code = RDW) 13.0 11.5-14.5 [facility]lineMazbrokXOCJKTNZNO8347-43-50 07:59:00 Test Item Value Reference Range Interpretation Comments Platelet (test code = Platelet) 233 133-450 [facility]lineQhomutcECOHQGHCJM1511-97-10 07:59:00 Test Item Value Reference Range Interpretation Comments MPV (test code = MPV) 8.1 7.4-10.4 [facility]lineKdugzwoSCSHOQBAAE5179-51-52 07:59:00 Test Item Value Reference Range Interpretation Comments Hgb (test code = Hgb) 13.0 14.0-18.0 [facility]lineCjywtwnAUVJOTMFRU1564-62-65 07:59:00 Test Item Value Reference Range Interpretation Comments Hct (test code = Hct) 37.4 42.0-54.0 [facility]lineXtsaehkUBYGAUDDHA8306-42-28 07:59:00 Test Item Value Reference Range Interpretation Comments MCV (test code = MCV) 84.0 80.0-94.0 [facility] ShorelineRrauddiZJKOFTELTA4586-46-59 07:59:00 Test Item Value Reference Range Interpretation Comments MCH (test code = MCH) 29.2 pg 27.0-31.0 [facility]lineOjxjdmaWOZNANJMXO2436-63-87 07:59:00 Test Item Value Reference Range Interpretation Comments MCHC (test code = MCHC) 34.7 32.0-36.0 [facility]lineDknjwutEKADXJTIKT1971-88-75 07:59:00 Test Item Value Reference Range Interpretation Comments MPV (test code = MPV) 8.1 7.4-10.4 [facility]lineJbdqxstVNDJFJRIGT5507-16-27 07:59:00 Test Item Value Reference Range Interpretation Comments WBC (test code = WBC) 14.8 3.7-10.4 [facility]lineSvtmjdrURDYGKTZSJ2593-72-06 07:59:00 Test Item Value Reference Range Interpretation Comments RBC (test code = RBC) 4.45 4.70-6.10 [facility]linePtlglsiUUFAHNKYOD7595-99-72 07:59:00 Test Item Value Reference Range Interpretation Comments Estimated % Lysis Rapid 3.6 See_Comment [Au tomated message] The (test code = Estimated syste m which generated % Lysis Rapid) this result t ransmitted reference range : <=7.5. The reference r hunter was not used to int erpret this result as normal/abnormal . [facility] ShorelineCokgivrJYPZKONSPM0463-79-25 07:59:00 Test Item Value Reference Range Interpretation Comments Max Amplitude Rapid (test code = Max 63 mm 52-71 Amplitude Rapid) [facility]lineSbsbcwuANJTJRXPLN3550-95-19 07:59:00 Test Item Value Reference Range Interpretation Comments G-value Rapid (test code = G-value 8.5 5.0-11.6 Rapid) [facility]lineCdolmnnSYWLAJMQBV8803-47-48 07:59:00 Test Item Value Reference Range Interpretation Comments K-time Rapid (test code = K-time 0.9 min 0.6-2.3 Rapid) [facility] HospitalQulrfngVWEEWEWQBP8874-34-75 07:59:00 Test Item Value Reference Range Interpretation Comments Angle Rapid (test code = Angle 77 degrees 64-80 Rapid) [facility] HospitalJlzagzyPSMMUWAUDA5165-34-48 07:59:00 Test Item Value Reference Range Interpretation Comments R-time Rapid (test code = R-time 0.5 min 0.4-0.7 Rapid) [facility] ShorelineXaedaayIGIUEMPLKA3217-76-34 07:59:00 Test Item Value Reference Range Interpretation Comments ACT (TEG) Rapid (test code = ACT (TEG) 97 s 86-118 Rapid) [facility] HospitalPnztihoVCFRLYRYZA1424-78-26 07:59:00 Test Item Value Reference Range Interpretation Comments Split Point Rapid (test code = Split 0.3 min Point Rapid) [facility] HospitalQpiihddUOLYERHFKX1849-93-83 07:59:00 Test Item Value Reference Range Interpretation Comments Hgb (test code = Hgb) 13.0 14.0-18.0 [facility] HospitalEwdbcifWNMXKSNLIW0486-41-90 07:59:00 Test Item Value Reference Range Interpretation Comments Etoh (%) (test code = Etoh (%)) 0.216 [facility] HospitalInxcbwzGXMLEDKAHU9316-24-89 07:59:00 Test Item Value Reference Range Interpretation Comments Ethanol Lvl (test code = Ethanol Lvl) 216 [facility] HospitalLgcgkjfAUZCENJWUI9073-52-40 07:59:00 Test Item Value Reference Range Interpretation Comments Hct (test code = Hct) 37.4 42.0-54.0 [facility] HospitalCetvleePVQDQDZZYG4329-74-85 07:59:00 Test Item Value Reference Range Interpretation Comments MCV (test code = MCV) 84.0 80.0-94.0 [facility] CDMNASJ2800-92-37 07:59:00 Test Item Value Reference Range Interpretation Comments ABO/Rh (test code = ABO/Rh) O POS [facility] KUHQVDS3175-35-31 07:59:00 Test Item Value Reference Range Interpretation Comments Antibody Scrn (test Negative (06/15/18 2:59 code = Antibody Scrn) AM) [facility] CampusW[facility] DCNQH8067-37-45 07:59:00 Test Item Value Reference Range Interpretation Comments Lactic Acid Lvl (test code = Lactic 2.2 0.5-2.2 Acid Lvl) [facility]lineHpdsupmHLDZVHKPWX0028-45-19 07:59:00 Test Item Value Reference Range Interpretation Comments MCH (test code = MCH) 29.2 pg 27.0-31.0 [facility] CenterEhtmvozIAIULZJPGHXE6735-63-10 07:59:00 Test Item Value Reference Range Interpretation Comments AGAP (test code = AGAP) 15.6 10.0-20.0 [facility] CenterTpawizqMCZXGVKPALYQ5940-47-58 07:59:00 Test Item Value Reference Range Interpretation Comments Creatinine Lvl (test code = Creatinine 0.88 0.50-1.40 Lvl) [facility] CenterWsplgauKMJWEXLEPLQS5067-80-20 07:59:00 Test Item Value Reference Range Interpretation Comments BUN (test code = BUN) 11 7-22 [facility] CenterZxrlbnfPBELURXSVDGK3602-21-22 07:59:00 Test Item Value Reference Range Interpretation Comments Potassium Lvl (test code = Potassium 3.6 3.5-5.1 Lvl) [facility] CenterKmhyonrBTJGBKWVHCIE1142-47-87 07:59:00 Test Item Value Reference Range Interpretation Comments Sodium Lvl (test code = Sodium Lvl) 143 135-145 [facility] CenterEhvdxiiBFNIRQOKCLZI0242-97-60 07:59:00 Test Item Value Reference Range Interpretation Comments Glucose Lvl (test code = Glucose Lvl) 141 70-99 [facility] CenterGxsjpvrQMQXHPQIWYRE4648-92-25 07:59:00 Test Item Value Reference Range Interpretation Comments Calcium Lvl (test code = Calcium Lvl) 8.3 8.5-10.5 [facility] CenterCfqndtlSTRIHKMZIVNH6677-96-82 07:59:00 Test Item Value Reference Range Interpretation Comments CO2 (test code = CO2) 23 24-32 [facility]lineUjwoquoCPFKKZCTTG8549-11-20 07:59:00 Test Item Value Reference Range Interpretation Comments MCHC (test code = MCHC) 34.7 32.0-36.0 [facility]lineZlnafsaETNQZMNQKE7513-14-09 07:59:00 Test Item Value Reference Range Interpretation Comments WBC (test code = WBC) 14.8 3.7-10.4 [facility]lineMkejvwkUOBPQBJWKV3841-26-21 07:59:00 Test Item Value Reference Range Interpretation Comments RBC (test code = RBC) 4.45 4.70-6.10 [facility]lineUtqagnjXCAQYCBNCO6023-80-74 07:59:00 Test Item Value Reference Range Interpretation Comments Estimated % Lysis Rapid 3.6 See_Comment [Au tomated message] The (test code = Estimated syste m which generated % Lysis Rapid) this result t ransmitted reference range : <=7.5. The reference r hunter was not used to int erpret this result as normal/abnormal . [facility]lineUwvebczLMJVQKKYTX0292-41-70 07:59:00 Test Item Value Reference Range Interpretation Comments Max Amplitude Rapid (test code = Max 63 mm 52-71 Amplitude Rapid) [facility]linePcldariEEODOQHXIB0355-10-15 07:59:00 Test Item Value Reference Range Interpretation Comments G-value Rapid (test code = G-value 8.5 5.0-11.6 Rapid) [facility]lineOeehrijBTYAHPQGGH2858-25-82 07:59:00 Test Item Value Reference Range Interpretation Comments K-time Rapid (test code = K-time 0.9 min 0.6-2.3 Rapid) [facility]lineWlwfpasLWMUBFRGIQ1781-24-63 07:59:00 Test Item Value Reference Range Interpretation Comments Angle Rapid (test code = Angle 77 degrees 64-80 Rapid) [facility]lineLprtvhkFMKKTKNKDO2444-89-22 07:59:00 Test Item Value Reference Range Interpretation Comments R-time Rapid (test code = R-time 0.5 min 0.4-0.7 Rapid) [facility]lineNubisjzHYCNHMLPSC3320-75-40 07:59:00 Test Item Value Reference Range Interpretation Comments ACT (TEG) Rapid (test code = ACT (TEG) 97 s 86-118 Rapid) [facility]lineMolvggqDHZXHPQFXM5361-46-21 07:59:00 Test Item Value Reference Range Interpretation Comments Split Point Rapid (test code = Split 0.3 min Point Rapid) [facility] HospitalVpaagnuLZQXNFXNDY9105-43-65 07:59:00 Test Item Value Reference Range Interpretation Comments Etoh (%) (test code = Etoh (%)) 0.216 [facility] HospitalNsdokaxUADWJUTGHU6998-03-56 07:59:00 Test Item Value Reference Range Interpretation Comments Ethanol Lvl (test code = Ethanol Lvl) 216 [facility] XNXTTTV8611-57-54 07:59:00 Test Item Value Reference Range Interpretation Comments ABO/Rh (test code = ABO/Rh) O POS [facility] FJDEPKA5450-77-32 07:59:00 Test Item Value Reference Range Interpretation Comments Antibody Scrn (test Negative (06/15/18 2:59 code = Antibody Scrn) AM) [facility] HospitalCHEM JPYXY6910-59-25 07:59:00 Test Item Value Reference Range Interpretation Comments Lactic Acid Lvl (test code = Lactic 2.2 0.5-2.2 Acid Lvl) [facility] CenterPubxabtHTQPUQYROOIJ1145-28-24 07:59:00 Test Item Value Reference Range Interpretation Comments AGAP (test code = AGAP) 15.6 10.0-20.0 [facility] CenterOvluhjlLFNQZOUEMPXI3459-39-15 07:59:00 Test Item Value Reference Range Interpretation Comments Creatinine Lvl (test code = Creatinine 0.88 0.50-1.40 Lvl) [facility] CenterIokgerzASYJMYQCYTXQ2467-94-71 07:59:00 Test Item Value Reference Range Interpretation Comments BUN (test code = BUN) 11 7-22 [facility] CenterVnkdyzhIXLVGVUBIFML3700-49-79 07:59:00 Test Item Value Reference Range Interpretation Comments Potassium Lvl (test code = Potassium 3.6 3.5-5.1 Lvl) [facility] CenterCqqtppaILEVRMHZVAHE6616-23-61 07:59:00 Test Item Value Reference Range Interpretation Comments Sodium Lvl (test code = Sodium Lvl) 143 135-145 [facility] CenterIijhtiyZQJHKWVAZHTN9132-80-76 07:59:00 Test Item Value Reference Range Interpretation Comments Glucose Lvl (test code = Glucose Lvl) 141 70-99 [facility] CenterIayvaacFRHXLNWMEEME9111-11-52 07:59:00 Test Item Value Reference Range Interpretation Comments Calcium Lvl (test code = Calcium Lvl) 8.3 8.5-10.5 [facility] CenterHdjfgwtVVRAMJCPVHUC7514-43-81 07:59:00 Test Item Value Reference Range Interpretation Comments CO2 (test code = CO2) 23 24-32 [facility] CenterSagzmdfHAWOEMTAPGJO6902-71-82 07:59:00 Test Item Value Reference Range Interpretation Comments Chloride Lvl (test code = Chloride Lvl) 108 95-109 [facility] CenterPfcgejpXFDJVVMNXHBE5321-07-70 07:59:00 Test Item Value Reference Range Interpretation Comments eGFR (test code = eGFR) 63 [facility]lineFnfjfcbRPQKXSEZRW9281-59-70 07:59:00 Test Item Value Reference Range Interpretation Comments Neutrophils # (test code = Neutrophils 10.6 1.5-8.1 #) [facility]lineMhjgebfEJLYDSFNXO2077-14-86 07:59:00 Test Item Value Reference Range Interpretation Comments Lymphocytes # (test code = Lymphocytes 3.5 1.0-5.5 #) [facility] Notes Date/Time Note Provider Source 2018-06-15 03:04:00-00:00 EXAM: XR RIGHT FOREARM 1 VIEW [facility] DATE: 06/15/2018 3:04 AM CDT INDICATION: trauma [...] right mid forearm. 3. No acute fracture. 2018-06-15 03:04:00-00:00 EXAM: XR RIGHT FOREARM 1 VIEW [facility] DATE: 06/15/2018 3:04 AM CDT INDICATION: trauma - lac./glass COMPARISON: None. [place] SECTION: ER TECHNIQUE: AP radiograph of the forearm FINDINGS: No acute fracture is identified. 0.3 cm hyperdensity projects over the mid -- distal radius. Soft tissue laceration over the medial forearm.
[2023-03-26] MEDS ORDERED: NA CHLORIDE 0.9% 1,000 ML ONE (15:25)
[2023-03-26] MEDS ORDERED: ONDANSETRON 4 MG/2 ML VIAL ONE (15:25)
[2023-03-26] MEDS ORDERED: MORPHINE 4 MG/ML SYR ONE ×2 (15:25→17:36)
[2023-03-26 15:43] LABS: Absolute Lymphocytes (CBC) 2.3 K/uL (0.7-4.9); Hematocrit 44.6 % (39.6-49.0); Lymphocytes % 21.2 % (15.3-44.8); MPV 8.2 fL (7.6-11.3); RBC Red Blood Cell Count 5.31 M/uL (4.33-5.43)
[2023-03-26 15:47] LABS: Albumin 3.8 g/dL (3.4-5.0); Potassium 3.8 mEq/L (3.5-5.1); Protein, Total 8.2 g/dL (6.4-8.2)
--- NOTE | 2023-03-26 17:44 | RAD REPORT ---
EXAM DESCRIPTION: CT - Abdomen Pelvis W Contrast - 03/26/2023 5:14 pm CLINICAL HISTORY: ABD PAIN COMPARISON: Abdomen Pelvis W Contrast dated 03/19/2023 TECHNIQUE: Thin cut axial CT imaging of the abdomen and pelvis was performed following intravenous a dministration of 100 mL Isovue 300. Multiplanar reformats were generated and reviewed. All CT scans are performed using dose optimization technique as appropriate and may include automated exposure control or mA/KV adjustment according to patient size. FINDINGS: No suspicious findings in the lung bases. Diffuse hepatic parenchymal hypoattenuation suggesting steatosis. No focal lesions of the liver are a ppreciated. Adrenal glands, spleen, and pancreas show no suspicious findings. Gallbladder and biliary tree are also without suspicious finding. Symmetric renal function is seen with no hydronephrosis or suspicious renal mass. No dilated bowel loops or bowel wall thickening. No free air, free fluid or inflammatory stranding. N o hernia, mass or bulky lymphadenopathy. The urinary bladder is suboptimally distended, limiting eval uation. No suspicious bony findings. IMPRESSION: No acute intra-abdominal process. Diffuse hepatic parenchymal hypoattenuation suggesting steatosis.
--- NOTE | 2023-03-26 18:13 | EDPHYS ---
Physician Documentation [facility] Name: Meño Rae Age: 27 yrs Sex: Male : 1995 Arrival Date: 03/26/2023 Time: 14:28 Bed 8 Private MD: ED Physician Cyrus Tay HPI: 03/26 17:28 This 27 yrs old Male presents to ER via Ambulatory with complaints of Groin rt Pain. 17:28 Patient presents to the ED with a pain to the right groin with known hernias that are rt for about 1 year. The pain has been worsening over the past few days. Patient was sent by his surgeon for further eval. Has not yet had a procedure done on this. Pain is aching nature, radiates to the right scrotum as well as down the anterior right leg, moderate severity, no other aggravating limiting factors.. Historical: - Allergies: 14:45 No Known Allergies; ss - PSHx: 14:45 right arm; ss - Immunization history:: Adult Immunizations unknown. - Social history:: Smoking status: unknown. - Family history:: not pertinent. ROS: 17:28 Constitutional: Negative for fever, chills, and weight loss, Cardiovascular: Negative rt for chest pain, palpitations, and edema, Respiratory: Negative for shortness of breath, cough, wheezing, and pleuritic chest pain, MS/Extremity: Negative for injury and deformity, Skin: Negative for injury, rash, and discoloration, Neuro: Negative for headache, weakness, numbness, tingling, and seizure, Psych: Negative for depression, anxiety, suicide ideation, homicidal ideation, and hallucinations. 17:28 Abdomen/GI: Positive for Groin pain, hernia. Exam: 17:28 Constitutional: This is a well developed, well nourished patient who is awake, alert, rt and in no acute distress. Chest/axilla: Normal chest wall appearance and motion. Nontender with no deformity. No lesions are appreciated. Cardiovascular: Regular rate and rhythm with a normal S1 and S2. No gallops, murmurs, or rubs. Normal PMI, no JVD. No pulse deficits. Respiratory: Lungs have equal breath sounds bilaterally, clear to auscultation and percussion. No rales, rhonchi or wheezes noted. No increased work of breathing, no retractions or nasal flaring. Skin: Warm, dry with normal turgor. Normal color with no rashes, no lesions, and no evidence of cellulitis. MS/ Extremity: Pulses equal, no cyanosis. Neurovascular intact. Full, normal range of motion. Neuro: Awake and alert, GCS 15, oriented to person, place, time, and situation. Cranial nerves II-XII grossly intact. Motor strength 5/5 in all extremities. Sensory grossly intact. Cerebellar exam normal. Normal gait. Psych: Awake, alert, with orientation to person, place and time. Behavior, mood, and affect are within normal limits. 17:28 Abdomen/GI: Nonreducible right femoral hernia present, no abdominal tenderness, distention. Vital Signs: 14:44 BP 141 / 73; Pulse 98; Resp 16; Temp 98(TE); Pulse Ox 98% on R/A; Weight 117.93 kg; ss Height 5 ft. 2 in. ; 17:19 BP 125 / 78; Pulse 78; Resp 18; Pulse Ox 98% on R/A; ph 17:40 BP 122 / 76; Pulse 70; Resp 18; Pulse Ox 98% on R/A; ph 18:33 BP 129 / 64; Pulse 72; Resp 18; Temp 97.9; Pulse Ox 99% on R/A; ph 14:44 Body Mass Index 47.55 (117.93 kg, 157.48 cm) ss MDM: 14:48 Patient medically screened. rt 18:15 Differential Diagnosis Incarcerated, strangulated hernia. Data reviewed: vital signs, rt nurses notes, lab test result(s), radiologic studies. Consideration of Admission/Observation Escalation of care including admission/observation considered. Discussed with the patient's surgeon, states that patient may either stay to be operated on tomorrow or follow-up in clinic tomorrow for surgery on . I offered the patient the option for either, states that he is comfortable with being discharged to follow-up tomorrow for preoperative planning.. I considered the following discharge prescriptions or medication management in the emergency department Medications were administered in the Emergency Department. See MAR. Counseling: I had a detailed discussion with the patient and/or guardian regarding: the historical points, exam findings, and any diagnostic results supporting the discharge/admit diagnosis, lab results, radiology results. 03/26 14:49 Order name: CBC with Diff; Complete Time: 15:59 rt 03/26 14:49 Order name: CMP; Complete Time: 15:59 rt 03/26 14:49 Order name: Lactate w/ 2H reflex if indic.; Complete Time: 15:59 rt 03/26 14:49 Order name: CT Abd/Pelvis - IV Contrast Only; Complete Time: 17:53 rt Administered Medications: 15:26 Drug: morphine IVP or IV 4 mg Route: IVP; Infused Over: 4 mins; Site: left antecubital; ph 16:00 Follow up: Response: No adverse reaction; Pain is decreased; RASS: Alert and Calm (0) ph 15:26 Drug: Ondansetron IVP 4 mg Route: IVP; Site: left antecubital; ph 18:34 Follow up: Response: No adverse reaction ph 15:26 Drug: NS 0.9% IV 1000 ml Route: IV; Rate: 1 bolus; Site: left antecubital; ph 17:00 Follow up: Response: No adverse reaction; IV Status: Completed infusion; IV Intake: ph 1000ml 17:41 Drug: morphine IVP or IV 4 mg Route: IVP; Infused Over: 4 mins; Site: left antecubital; ph 18:33 Follow up: Response: No adverse reaction; Pain is decreased; RASS: Alert and Calm (0) ph Disposition Summary: 03/26/23 18:12 Discharge Ordered Location: Home rt Problem: an ongoing problem rt Symptoms: have improved rt Condition: Stable rt Diagnosis - Unilateral inguinal hernia, without obstruction or gangrene, not specified as rt recurrent Followup: rt - With: Sanjeev Fofana MD - When: Tomorrow - Reason: Discharge Instructions: - Discharge Summary Sheet rt - Hernia, Adult rt Forms: - Medication Reconciliation Form rt - Thank You Letter rt - Antibiotic Education rt - Prescription Opioid Use rt - [email or web address] rt Prescriptions: - acetaminophen-codeine 300-30 mg Oral tablet - take 1 tablet by ORAL route every 6 hours; 9 tablet; Refills: 0, Product rt Selection Permitted Signatures: Dispatcher [employer] Tressa Mcmanus RN RN Adelaide Lynch RN RN Cyrus Tay MD MD rt
--- NOTE | 2023-03-26 18:13 | ER ---
Nurse's Notes [facility] Name: Meño Rae Age: 27 yrs Sex: Male : 1995 Arrival Date: 03/26/2023 Time: 14:28 Bed 8 Private MD: Diagnosis: Unilateral inguinal hernia, without obstruction or gangrene, not specified as recurrent Presentation: 03/26 14:44 Chief complaint: Patient states: R hip pain that radiates down to R groin and testicles ss and then down R leg. Coronavirus screen: Client denies travel out of the [place] in the last 14 days. Ebola Screen: Patient denies exposure to infectious person. Patient denies travel to an Ebola-affected area in the 21 days before illness onset. Initial Sepsis Screen: Does the patient meet any 2 criteria? No. Patient's initial sepsis screen is negative. Does the patient have a suspected source of infection? No. Patient's initial sepsis screen is negative. Risk Assessment: Do you want to hurt yourself or someone else? Patient reports no desire to harm self or others. Onset of symptoms is unknown. 14:44 Acuity: DANIEL 3 ss 14:44 Method Of Arrival: Ambulatory ss Historical: - Allergies: 14:45 No Known Allergies; ss - PSHx: 14:45 right arm; ss - Immunization history:: Adult Immunizations unknown. - Social history:: Smoking status: unknown. - Family history:: not pertinent. Screenin:20 [facility] [place] ED Fall Risk Assessment (Adult) History of falling in the last 3 months, ph including since admission No falls in past 3 months (0 pts) Confusion or Disorientation No (0 pts) Intoxicated or Sedated No (0 pts) Impaired Gait No (0 pts) Mobility Assist Device Used No (0 pt) Altered Elimination No (0 pt) Score/Fall Risk Level 0 - 2 = Low Risk Oriented to surroundings, Maintained a safe environment, Hourly rounding (assess needs \T\ fall precautionary measures) done. Abuse screen: Denies threats or abuse. Denies injuries from another. Nutritional screening: No deficits noted. Tuberculosis screening: No symptoms or risk factors identified. Assessment: 15:15 General: Appears in no apparent distress. uncomfortable, obese, well groomed, Behavior ph is calm, cooperative, appropriate for age. Pain: Complains of pain in right femoral area. Neuro: Level of Consciousness is awake, alert, obeys commands, Oriented to person, place, time, situation. Cardiovascular: Capillary refill < 3 seconds in bilateral fingers Patient's skin is warm and dry. Respiratory: Airway is patent Respiratory effort is even, unlabored, Respiratory pattern is regular, symmetrical. GI:. Derm: Skin is pink, warm \T\ dry. 17:00 Reassessment: Patient appears in no apparent distress at this time. Patient and/or ph family updated on plan of care and expected duration. Pain level reassessed. Patient is alert, oriented x 3, equal unlabored respirations, skin warm/dry/pink. 18:33 Reassessment: Patient appears in no apparent distress at this time. Patient and/or ph family updated on plan of care and expected duration. Pain level reassessed. Patient is alert, oriented x 3, equal unlabored respirations, skin warm/dry/pink. Vital Signs: 14:44 BP 141 / 73; Pulse 98; Resp 16; Temp 98(TE); Pulse Ox 98% on R/A; Weight 117.93 kg; ss Height 5 ft. 2 in. ; 17:19 BP 125 / 78; Pulse 78; Resp 18; Pulse Ox 98% on R/A; ph 17:40 BP 122 / 76; Pulse 70; Resp 18; Pulse Ox 98% on R/A; ph 18:33 BP 129 / 64; Pulse 72; Resp 18; Temp 97.9; Pulse Ox 99% on R/A; ph 14:44 Body Mass Index 47.55 (117.93 kg, 157.48 cm) ED Course: 14:30 Patient arrived in ED. im 14:30 Cyrus Tay MD is Attending Physician. rt 14:45 Triage completed. ss 14:45 Arm band placed on right wrist. ss 15:12 Adelaide Lynch, RN is Primary Nurse. ph 15:19 Inserted saline lock: 20 gauge in left forearm, using aseptic technique. Blood ds4 collected. 15:21 Patient has correct armband on for positive identification. Bed in low position. Call ph light in reach. Side rails up X 1. Pulse ox on. NIBP on. 17:15 CT Abd/Pelvis - IV Contrast Only In Process Unspecified. EDMS 18:12 Sanjeev Fofana MD is Referral Physician. rt 18:34 No provider procedures requiring assistance completed. IV discontinued, intact, ph bleeding controlled, No redness/swelling at site. Pressure dressing applied. Administered Medications: 15:26 Drug: morphine IVP or IV 4 mg Route: IVP; Infused Over: 4 mins; Site: left antecubital; ph 16:00 Follow up: Response: No adverse reaction; Pain is decreased; RASS: Alert and Calm (0) ph 15:26 Drug: Ondansetron IVP 4 mg Route: IVP; Site: left antecubital; ph 18:34 Follow up: Response: No adverse reaction ph 15:26 Drug: NS 0.9% IV 1000 ml Route: IV; Rate: 1 bolus; Site: left antecubital; ph 17:00 Follow up: Response: No adverse reaction; IV Status: Completed infusion; IV Intake: ph 1000ml 17:41 Drug: morphine IVP or IV 4 mg Route: IVP; Infused Over: 4 mins; Site: left antecubital; ph 18:33 Follow up: Response: No adverse reaction; Pain is decreased; RASS: Alert and Calm (0) ph Medication: 15:20 VIS not applicable for this client. ph Intake: 17:00 IV: 1000ml; Total: 1000ml. ph Outcome: 18:12 Discharge ordered by . rt 18:34 Discharged to home ambulatory. ph 18:34 Condition: good 18:34 Discharge instructions given to patient, significant other, Instructed on discharge instructions, follow up and referral plans. medication usage, Demonstrated understanding of instructions, follow-up care, medications, Prescriptions given X 1. 18:35 Patient left the ED. ph Signatures: Dispatcher [employer] EDMS Tressa Suazo RN RN Noah Hall ds4 Adelaide Lynch RN RN ph Cyrus Tay MD MD rt Rhina Rae
[2023-03-26 19:45] VITALS: BP 129/64; TEMP 97.9; O2SAT 99
== END 2023-03-26 18:35 | disposition home or self-care (01) ==
LOC: ER 14:28
DX: K40.90 Unilateral inguinal hernia, without obstruction or gangrene, not specified as recurrent (principal)
CPT/HCPCS: 85025; 36415; 83605; 80053; 74177; Q9967; J2405; J7030

== ENCOUNTER 2023-03-28 12:09 | Day surgery (SDC) | payer BC ==
--- NOTE | 2023-03-28 12:34 | EKG ---
Test Date: 2023-03-28 Test Time: 12:19:01 Calculator Operator: BRIANNE MEASUREMENT RESULTS: Intervals: Rate: 61 UT: 110 QRSD: 96 QT: 384 QTc: 386 [place]: P: 22 UT: 110 QRS: 40 T: 26 INTERPRETIVE STATEMENTS: Sinus rhythm with sinus arrhythmia with short UT Otherwise normal ECG Compared to ECG 05/15/2021 02:38:05 Short UT interval now present Atrial fibrillation no longer present ST (T wave) deviation no longer present Electronically Signed On 03-28-23 12:33:54 CDT by Michel Desai
[2023-03-28] MEDS ORDERED: Ringers Lactate 1,000 ML IV ONE ×3 (12:48→16:27)
[2023-03-28] MEDS ORDERED: CEFAZOLIN SODIUM 2 GM/VIAL ONE (12:48)
[2023-03-28 13:36] LABS: Potassium 3.9 mEq/L (3.5-5.1)
[2023-03-28] MEDS: BUPIVACAINE 0.25% PF 30 ML VIAL ONE ×2 (13:47→15:05)
[2023-03-28] MEDS ORDERED: propofoL 200 MG/20 ML VIAL IV ONE (14:21)
[2023-03-28] MEDS ORDERED: FENTANYL CITR 100 MCG/2 ML ONE ×2 (14:22→15:19)
[2023-03-28] MEDS ORDERED: dexAMETHasone 10 MG/ML VIAL ONE (14:22)
[2023-03-28] MEDS ORDERED: ONDANSETRON 4 MG/2 ML VIAL ONE (14:23)
[2023-03-28] MEDS ORDERED: MIDAZOLAM HCL 2 MG/2 ML INJ ONE (14:23)
[2023-03-28] MEDS ORDERED: KETOROLAC 30 MG/ML INJ ONE (14:23)
[2023-03-28] MEDS ORDERED: LIDOCAINE 2% MPF 5 ML VIAL ONE (14:23)
--- NOTE | 2023-03-28 15:57 | P.OP ---
Preoperative diagnosis: RIGHT Inguinal Hernia Postoperative diagnosis: RIGHT Inguinal Hernia Primary procedure: Open RIGHT Inguinal Hernia Repair with mesh Anesthesia: GETA + Local Estimated blood loss: <5cc Specimen: none Findings: small indirect umbilical hernia, ext oblique thin Complications: None Implants: Bard Perfix Small Plug and Patch hernia repair system Transferred to: Recovery Room Condition: Good
[2023-03-28 16:37] VITALS: TEMP 97
[2023-03-28 18:01] VITALS: BP 119/74; O2SAT 98
--- NOTE | 2023-03-29 02:43 | OP ---
Date of Procedure: 03/28/2023 Surgeon: Sanjeev Fofana MD, Preoperative Diagnosis: Right inguinal hernia. Postoperative Diagnosis: Right inguinal hernia. Procedure Performed: Open right inguinal hernia repair with mesh. Anesthesia: General endotracheal plus local with 0.25% Marcaine. Estimated Blood Loss: Less than 5 cc. Specimen: None. Findings: A small indirect inguinal hernia was noted and a thin external oblique aponeurosis. Once again, the findings were small indirect inguinal hernia and a very thin alveolar external oblique apo neurosis. Complications: None. Implants: Bard PerFix small plug and patch hernia repair system. Disposition: The patient transferred to recovery room in good condition. Procedure In Detail: After informed consent was obtained, patient was brought to the operating room, prepped and draped in the usual sterile fashion. After adequate anesthesia was achieved, I made a l ow pubic incision down through subcutaneous tissues using a 15 blade after appropriately anesthetizin g the skin. I then dissected down through Camper fat and Garcia fascia to expose the external obliqu e aponeurosis, which was found to be quite thin and alveolar. This was opened sharply and opened in its entirety using Metzenbaum scissors, protecting the ilioinguinal iliohypogastric nerve throughout. I dissected down to the spermatic cord structures, and encircled this with a Mcdavid drain. I then dissected all tissue free from the spermatic cord structures, found there to be a small indirect ing uinal hernia on the medial aspect. I then dissected this free, pushed it back in the preperitoneal s pace and placed a small Bard PerFix plug into the defect, securing it circumferentially around using interrupted 2-0 PDS sutures with good approximation. At this point, I irrigated the area copiously a nd dried it thoroughly. I placed and sized the patch appropriately and placed the patch on the floor of the inguinal canal. I then secured it to the internal oblique aponeurosis and the undersurface o f the inguinal ligament circumferentially run using interrupted 2-0 PDS sutures and reconstructed the deep inguinal ring using the same said 2-0 PDS suture. The mesh was trimmed a little more on the ta il end. At this point, I secured to the pubic tubercle on the medial aspect as well. At this point, I irrigated the area once again, dried it out until completely clear. I closed the external oblique aponeurosis using a running 3-0 Vicryl suture and closed the Camper fat and Garcia fascia using inte rrupted 3-0 Vicryl suture and the deep dermal plane was closed using the same said 3-0 Vicryl suture in interrupted fashion. Skin was closed with 4-0 Monocryl fashion. Dermabond was placed over top. Patient tolerated the procedure well without evidence of complication and transferred to PACU in good condition. All counts were correct at the end of the case. JEREMY/SABI Voice ID: [id number] Report ID: [id number]
== END 2023-03-28 18:00 | disposition home or self-care (01) ==
LOC: OR 12:09
PROVIDERS: ATTEND Surgery
PROC: 0YU50JZ Supplement Right Inguinal Region with Synthetic Substitute, Open Approach (ICD-10-PCS; principal; 2023-03-28 14:30)
DX: K40.90 Unilateral inguinal hernia, without obstruction or gangrene, not specified as recurrent (principal)
CPT/HCPCS: 93005; 80048; 36415; 49505; C1781; J2704; J2001; J2250; J3010 ×2; J1100; J2405; J7120 ×3